=== PATIENT | male | born 1975 | race Caucasian/White ===

== ENCOUNTER 2018-03-13 07:58 | Emergency (ER) | payer MEDICAID, OTHER ==
[~2018-03-13] VITALS: Ht 190.5 cm; Wt 110.0 kg
[~2018-03-13 07:58] MED LIST: LORA1TAB PO; OLAN10TA3 PO
[2018-03-13] MEDS ORDERED: normal saline 1000ML IV soln IVB ONE ×2 (08:15→11:20)
[2018-03-13 08:39] LABS: BASOPHILS % (AUTO) 0.1 % (0-1); EOSINOPHILS % (AUTO) 0 % (0-6); HEMATOCRIT 48.6 % (42.0-52.0); HEMOGLOBIN 16.1 g/dl (14.0-17.9); LYMPHOCYTES # (AUTO) 0.7 X10'3 (1.1-4.8); MEAN CORPUSCULAR HEMOGLOBIN 29.4 PG (27.0-31.0); MEAN CORPUSCULAR HGB CONC 33.1 % (33.0-36.5); MEAN CORPUSCULAR VOLUME 88.8 FL (78-98); MEAN PLATELET VOLUME 8.7 FL (7.4-10.4); MONOCYTES # (AUTO) 0.8 X10'3 (0-0.9); MONOCYTES % (AUTO) 4.6 % (2-12); NEUTROPHILS # (AUTO) 15.9 X10'3 (1.8-7.7); NEUTROPHILS % (AUTO) 91.3 % (42-75); PLATELET COUNT 396 X10'3 (140-440); RED BLOOD COUNT 5.48 X10'6 (4.70-6.10); RED CELL DISTRIBUTION WIDTH 13.7 % (11.5-14.5); WHITE BLOOD COUNT 17.4 X10'3 (4.5-11.0)
[2018-03-13 08:52] LABS: ALANINE AMINOTRANSFERASE 115 U/L (12-78); ALBUMIN 3.5 G/DL (3.4-5.0); ALBUMIN/GLOBULIN RATIO 0.9 (1.1-1.5); ALKALINE PHOSPHATASE 85 IU/L (46-116); ANION GAP 21 (8-16); ASPARTATE AMINO TRANSFERASE 165 U/L (10-37); BILIRUBIN,TOTAL 0.9 MG/DL (0.1-1.0); BLOOD UREA NITROGEN 72 MG/DL (7-18); BUN/CREATININE RATIO 44.7 (5.4-32.0); CALCIUM 8.2 MG/DL (8.5-10.1); CHLORIDE 100 MMOL/L (99-107); CREATININE 1.61 MG/DL (0.60-1.10); ETHANOL < 0.010 GM/DL (0.0-0.010); GLUCOSE 109 MG/DL (70-104); POTASSIUM 4.5 MMOL/L (3.5-5.1); SODIUM 144 MMOL/L (135-145); TOTAL CARBON DIOXIDE 23.5 MMOL/L (24-32); TOTAL PROTEIN 7.2 G/DL (6.4-8.2); eGFR 48 ML/MIN
[2018-03-13] MEDS ORDERED: OMEP40CA37 PO (10:11)
[2018-03-13 10:37] LABS: CLARITY,URINE CLEAR (Clear); COLOR,URINE YELLOW (Yellow); GLUCOSE, URINE NEGATIVE (Neg); KETONES,URINE >=80 mg/dl (Neg); LEUKOCYTE ESTERASE ,URINE NEGATIVE (Neg); NITRITES, URINE NEGATIVE (Neg); OCCULT BLOOD,URINE MODERATE (Neg); PH,URINE 5.5 (4.8-8.0); PROTEIN,URINE NEGATIVE (Neg); UROBILINOGEN,URINE 0.2 E.U/dL (0.2-1.0)
[2018-03-13 10:45] LABS: UA COLLECTION TYPE STRAIGHT CATH
[2018-03-13 10:47] LABS: AMORPHOUS URATES 1+; BACTERIA,URINE NONE SEEN /HPF (Neg); MUCUS STRANDS NONE SEEN /LPF (Neg); RBC,URINE 0-2 /HPF (0-2); SQUAMOUS EPITHELIAL CELL,UR NONE SEEN /LPF (FEW); WBC,URINE NONE SEEN /HPF (0-4)
[2018-03-13 10:49] LABS: URINE AMPHETAMINE SCREEN NEGATIVE (Neg); URINE BARBITUATE SCREEN NEGATIVE (Neg); URINE BENZODIAZEPINES SCREEN NEGATIVE (Neg); URINE CANNABINOID SCREEN NEGATIVE (Neg); URINE COCAINE SCREEN NEGATIVE (Neg); URINE METHADONE SCREEN NEGATIVE (Neg); URINE OPIATE SCREEN NEGATIVE (Neg); URINE PHENCYCLIDINE SCREEN NEGATIVE (Neg)
[2018-03-13 13:24] LABS: ALANINE AMINOTRANSFERASE 105 U/L (12-78); ALBUMIN/GLOBULIN RATIO 0.9 (1.1-1.5); ALKALINE PHOSPHATASE 77 IU/L (46-116); ANION GAP 20 (8-16); ASPARTATE AMINO TRANSFERASE 160 U/L (10-37); BILIRUBIN,TOTAL 0.8 MG/DL (0.1-1.0); BLOOD UREA NITROGEN 61 MG/DL (7-18); BUN/CREATININE RATIO 45.5 (5.4-32.0); CALCIUM 7.6 MG/DL (8.5-10.1); CHLORIDE 104 MMOL/L (99-107); CREATININE 1.34 MG/DL (0.60-1.10); GLUCOSE 98 MG/DL (70-104); POTASSIUM 4.4 MMOL/L (3.5-5.1); SODIUM 142 MMOL/L (135-145); TOTAL PROTEIN 6.3 G/DL (6.4-8.2); eGFR 59 ML/MIN
[2018-03-13] MEDS: LORazepam 1 MG tablet PO SCH (15:14)
[2018-03-13] MEDS: olanzapine 10mg tablet PO SCH ×2 (15:14→20:56)
[2018-03-14] MEDS: LORazepam 1 MG tablet PO SCH ×3 (00:51→16:00)
[2018-03-14] MEDS: olanzapine 10mg tablet PO SCH ×3 (08:37→21:00)
[2018-03-14] MEDS: pantoprazole 40mg Tablet.DR PO SCH (08:37)
[2018-03-14] MEDS ORDERED: LORazepam 1 MG tablet PO PRN (15:50)
[2018-03-14] MEDS ORDERED: OLANZapine 2.5MG tablet PO SCH (16:00)
[2018-03-14] MEDS ORDERED: OLANZapine 2.5MG tablet PO ONE (16:00)
[2018-03-14] MEDS: OLANZapine 2.5MG tablet PO SCH (21:10)
[2018-03-15] MEDS: pantoprazole 40mg Tablet.DR PO SCH ×2 (07:30→08:05)
[2018-03-15] MEDS ORDERED: normal saline 1000ML IV soln IVB ONE (07:30)
[2018-03-15] MEDS: olanzapine 10mg tablet PO SCH (08:00)
[2018-03-15] MEDS: LORazepam 1 MG tablet PO SCH ×2 (08:00)
[2018-03-15] MEDS: OLANZapine 2.5MG tablet PO SCH (08:06)
[2018-03-15 09:09] LABS: BASOPHILS % (AUTO) 0.8 % (0-1); EOSINOPHILS # (AUTO) 0.1 X10'3 (0-0.9); EOSINOPHILS % (AUTO) 1.5 % (0-6); HEMATOCRIT 40.4 % (42.0-52.0); HEMOGLOBIN 13.4 g/dl (14.0-17.9); LYMPHOCYTES # (AUTO) 1.1 X10'3 (1.1-4.8); LYMPHOCYTES % (AUTO) 21.7 % (21-51); MEAN CORPUSCULAR HEMOGLOBIN 29.6 PG (27.0-31.0); MEAN CORPUSCULAR HGB CONC 33.2 % (33.0-36.5); MEAN PLATELET VOLUME 8.8 FL (7.4-10.4); MONOCYTES # (AUTO) 0.5 X10'3 (0-0.9); MONOCYTES % (AUTO) 9.6 % (2-12); NEUTROPHILS # (AUTO) 3.2 X10'3 (1.8-7.7); NEUTROPHILS % (AUTO) 66.4 % (42-75); PLATELET COUNT 174 X10'3 (140-440); RED BLOOD COUNT 4.54 X10'6 (4.70-6.10); RED CELL DISTRIBUTION WIDTH 13.9 % (11.5-14.5); WHITE BLOOD COUNT 4.9 X10'3 (4.5-11.0)
[2018-03-15] MEDS ORDERED: OLANZapine 2.5MG tablet PO PRN (09:10)
[2018-03-15 09:11] LABS: ALANINE AMINOTRANSFERASE 96 U/L (12-78); ALBUMIN 2.8 G/DL (3.4-5.0); ALBUMIN/GLOBULIN RATIO 0.9 (1.1-1.5); ALKALINE PHOSPHATASE 53 IU/L (46-116); ANION GAP 5 (8-16); ASPARTATE AMINO TRANSFERASE 103 U/L (10-37); BILIRUBIN,TOTAL 0.5 MG/DL (0.1-1.0); BLOOD UREA NITROGEN 19 MG/DL (7-18); BUN/CREATININE RATIO 20.2 (5.4-32.0); CALCIUM 8.4 MG/DL (8.5-10.1); CHLORIDE 109 MMOL/L (99-107); CREATININE 0.94 MG/DL (0.60-1.10); GLUCOSE 103 MG/DL (70-104); POTASSIUM 3.9 MMOL/L (3.5-5.1); SODIUM 146 MMOL/L (135-145); TOTAL CARBON DIOXIDE 32.4 MMOL/L (24-32); eGFR 88 ML/MIN
[2018-03-15 09:23] LABS: CREATINE KINASE 1103 U/L (39-308)
[2018-03-15] MEDS: LORazepam 1 MG tablet PO PRN (22:05)
[2018-03-16] MEDS: LORazepam 1 MG tablet PO PRN ×2 (04:21→09:56)
[2018-03-16 05:30] VITALS: BP 121/88
[2018-03-16] MEDS ORDERED: olanzapine 10mg tablet PO SCH (08:00)
[2018-03-16] MEDS: pantoprazole 40mg Tablet.DR PO SCH (08:15)
[2018-03-16] MEDS ORDERED: OLAN10TA3 PO (16:04)
== END 2018-03-16 16:44 ==
LOC: ER 07:59
DX: T68.XXXA Hypothermia, initial encounter (principal); F23 Brief psychotic disorder; Z88.0 Allergy status to penicillin; Z79.899 Other long term (current) drug therapy; Z59.0 Homelessness; X31.XXXA Exposure to excessive natural cold, initial encounter
CPT/HCPCS: 36415; 71045; 80053; 80305; 80320; 81001; 82140; 82550; 84443; 85025; 99285; J3490

== ENCOUNTER 2018-03-16 14:59 | Inpatient (IN) | payer MEDICAID ==
[~2018-03-16] VITALS: Ht 190.5 cm; Wt 122.9 kg
[~2018-03-16 14:59] MED LIST changes: +OMEP40CA37 PO
[2018-03-16] MEDS ORDERED: OLAN10TA3 PO (16:04)
[2018-03-16] MEDS ORDERED: acetaminophen 325mg tablet PO PRN (16:10)
[2018-03-16] MEDS ORDERED: tuberculin, purif. prot. deriv. 5 units/0.1ml ID ONE (16:10)
[2018-03-16] MEDS ORDERED: magnesium hydroxide 30ml (MOM) UD suspension PO PRN (16:10)
[2018-03-16] MEDS ORDERED: mag hydrox/Alum hydrox/simeth 30ml oral suspension PO PRN (16:10)
[2018-03-16 16:20] VITALS: BP 144/88
[2018-03-16] MEDS ORDERED: OLANZapine 2.5MG tablet PO PRN (17:35)
[2018-03-16] MEDS ORDERED: olanzapine 10mg tablet PO PRN (17:35)
[2018-03-16] MEDS ORDERED: OLANZapine 2.5MG tablet PO ONE (19:15)
[2018-03-16] MEDS ORDERED: olanzapine 10mg tablet PO ONE (19:20)
[2018-03-16] MEDS ORDERED: LORazepam 1 MG tablet PO ONE (19:25)
[2018-03-16 19:45] LABS: CHOL/HDL RATIO 4.2 (0.00-4.99); CHOLESTEROL 121 MG/DL (0-200); HDL CHOLESTEROL 29 MG/DL (35-60); LDL CHOLESTEROL 75 MG/DL (50-100); TRIGLYCERIDES 127 MG/DL (20-135)
[2018-03-16 19:50] VITALS: BP 145/82
[2018-03-16 20:34] VITALS: BP 145/82
[2018-03-17] MEDS: LORazepam 1 MG tablet PO PRN ×2 (00:50→21:34)
[2018-03-17] MEDS: olanzapine 10mg tablet PO PRN ×2 (01:01→11:53)
[2018-03-17 08:00] VITALS: BP 128/85
[2018-03-17] MEDS: pantoprazole 40mg Tablet.DR PO SCH (08:13)
[2018-03-17] MEDS: olanzapine 10mg tablet PO SCH ×2 (08:14→21:33)
[2018-03-17] MEDS: acetaminophen 325mg tablet PO PRN (12:43)
[2018-03-17 15:57] LABS: BASOPHILS % (AUTO) 0.2 % (0-1); EOSINOPHILS # (AUTO) 0.2 X10'3 (0-0.9); EOSINOPHILS % (AUTO) 3.5 % (0-6); HEMATOCRIT 43.4 % (42.0-52.0); HEMOGLOBIN 14.4 g/dl (14.0-17.9); LYMPHOCYTES # (AUTO) 1.1 X10'3 (1.1-4.8); LYMPHOCYTES % (AUTO) 16.6 % (21-51); MEAN CORPUSCULAR HEMOGLOBIN 29.4 PG (27.0-31.0); MEAN CORPUSCULAR HGB CONC 33.3 % (33.0-36.5); MEAN CORPUSCULAR VOLUME 88.4 FL (78-98); MEAN PLATELET VOLUME 8.5 FL (7.4-10.4); MONOCYTES # (AUTO) 0.4 X10'3 (0-0.9); MONOCYTES % (AUTO) 6.4 % (2-12); NEUTROPHILS # (AUTO) 4.9 X10'3 (1.8-7.7); NEUTROPHILS % (AUTO) 73.3 % (42-75); PLATELET COUNT 255 X10'3 (140-440); RED BLOOD COUNT 4.91 X10'6 (4.70-6.10); RED CELL DISTRIBUTION WIDTH 13.8 % (11.5-14.5); WHITE BLOOD COUNT 6.7 X10'3 (4.5-11.0)
[2018-03-17 16:03] LABS: LACTIC SEPSIS 1.6 MMOL/L (0.4-2.0)
[2018-03-17 16:06] LABS: ALANINE AMINOTRANSFERASE 93 U/L (12-78); ALBUMIN 3.1 G/DL (3.4-5.0); ALBUMIN/GLOBULIN RATIO 0.8 (1.1-1.5); ALKALINE PHOSPHATASE 73 IU/L (46-116); ANION GAP 7 (8-16); ASPARTATE AMINO TRANSFERASE 57 U/L (10-37); BILIRUBIN,TOTAL 0.3 MG/DL (0.1-1.0); BLOOD UREA NITROGEN 16 MG/DL (7-18); BUN/CREATININE RATIO 15.8 (5.4-32.0); CHLORIDE 106 MMOL/L (99-107); CREATINE KINASE 246 U/L (39-308); CREATININE 1.01 MG/DL (0.60-1.10); GLUCOSE 145 MG/DL (70-104); POTASSIUM 4.2 MMOL/L (3.5-5.1); SODIUM 141 MMOL/L (135-145); eGFR 81 ML/MIN
[2018-03-17 16:15] LABS: HIV ANTIBODY 1&2 RAPID NON-REACTIVE (Neg)
[2018-03-17 19:00] VITALS: BP 109/76
[2018-03-17] MEDS: propranolol 10mg tablet PO SCH (21:34)
[2018-03-18 08:00] VITALS: BP 151/71
[2018-03-18] MEDS: pantoprazole 40mg Tablet.DR PO SCH (08:18)
[2018-03-18] MEDS: propranolol 10mg tablet PO SCH ×2 (08:18→20:24)
[2018-03-18] MEDS: olanzapine 10mg tablet PO SCH ×2 (08:18→21:00)
[2018-03-18] MEDS: LORazepam 1 MG tablet PO PRN (19:38)
[2018-03-18] MEDS: olanzapine 10mg tablet PO PRN (19:38)
[2018-03-18 20:00] VITALS: BP 116/63
[2018-03-18] MEDS ORDERED: OLANZapine 2.5MG tablet PO ONE (20:05)
[2018-03-18] MEDS ORDERED: olanzapine 10mg tablet PO ONE (20:10)
[2018-03-18] MEDS ORDERED: diphenhydrAMINE 25mg capsule PO ONE (23:20)
[2018-03-18] MEDS ORDERED: haloperidol 5mg tablet PO ONE (23:20)
[2018-03-18] MEDS ORDERED: LORazepam 1 MG tablet PO ONE (23:20)
[2018-03-19 07:12] LABS: HBSAG SCREEN Negative (Negative); HEP A AB, IGM Negative (Negative); HEP B CORE AB, IGM Negative (Negative); HEPATITIS C ANTIBODY 0.2 s/co ratio (0.0-0.9)
[2018-03-19 08:00] VITALS: BP 143/90
[2018-03-19] MEDS: propranolol 10mg tablet PO SCH ×3 (08:27→19:59)
[2018-03-19] MEDS: olanzapine 10mg tablet PO SCH ×2 (08:27→20:00)
[2018-03-19] MEDS: pantoprazole 40mg Tablet.DR PO SCH (08:27)
[2018-03-19] MEDS: olanzapine 10mg tablet PO PRN (13:46)
[2018-03-19 17:12] VITALS: BP 102/60
[2018-03-19 19:00] VITALS: BP 126/65
[2018-03-19] MEDS: diphenhydrAMINE 25mg capsule PO PRN ×2 (22:16→23:09)
[2018-03-19] MEDS: LORazepam 1 MG tablet PO PRN ×2 (22:16→23:08)
[2018-03-19] MEDS: haloperidol 5mg tablet PO PRN ×2 (22:16→23:09)
[2018-03-20 08:00] VITALS: BP 131/80
[2018-03-20] MEDS: propranolol 10mg tablet PO SCH ×3 (08:02→20:16)
[2018-03-20] MEDS: olanzapine 10mg tablet PO SCH ×2 (08:03→20:16)
[2018-03-20] MEDS: pantoprazole 40mg Tablet.DR PO SCH (08:03)
[2018-03-20 20:00] VITALS: BP 123/72
[2018-03-20] MEDS: haloperidol 5mg tablet PO PRN ×2 (22:06→22:50)
[2018-03-20] MEDS: diphenhydrAMINE 25mg capsule PO PRN ×2 (22:06→22:51)
[2018-03-20] MEDS: LORazepam 1 MG tablet PO PRN ×2 (22:06→22:50)
[2018-03-21] MEDS: olanzapine 10mg tablet PO SCH ×2 (07:45→21:01)
[2018-03-21] MEDS: propranolol 10mg tablet PO SCH ×3 (07:46→21:01)
[2018-03-21] MEDS: pantoprazole 40mg Tablet.DR PO SCH (07:46)
[2018-03-21 08:00] VITALS: BP 126/72
[2018-03-21] MEDS: haloperidol 5mg tablet PO PRN ×2 (10:04→21:02)
[2018-03-21] MEDS: LORazepam 1 MG tablet PO PRN ×2 (10:05→21:02)
[2018-03-21 20:00] VITALS: BP 117/61
[2018-03-21] MEDS: diphenhydrAMINE 25mg capsule PO PRN (21:02)
[2018-03-22 08:00] VITALS: BP 129/77
[2018-03-22] MEDS: olanzapine 10mg tablet PO SCH ×2 (08:06→20:25)
[2018-03-22] MEDS: propranolol 10mg tablet PO SCH ×3 (08:06→20:24)
[2018-03-22] MEDS: pantoprazole 40mg Tablet.DR PO SCH (08:06)
[2018-03-22 20:00] VITALS: BP 115/64
[2018-03-22] MEDS: LORazepam 1 MG tablet PO PRN (20:23)
[2018-03-22] MEDS: temazepam 15mg capsule PO PRN (20:24)
[2018-03-23 08:00] VITALS: BP 129/65
[2018-03-23] MEDS: propranolol 10mg tablet PO SCH ×3 (08:25→20:50)
[2018-03-23] MEDS: olanzapine 10mg tablet PO SCH ×2 (08:25→20:50)
[2018-03-23] MEDS: pantoprazole 40mg Tablet.DR PO SCH (08:25)
[2018-03-23] MEDS: haloperidol 5mg tablet PO PRN (18:53)
[2018-03-23] MEDS: LORazepam 1 MG tablet PO PRN (18:53)
[2018-03-23 20:00] VITALS: BP 118/80
[2018-03-23] MEDS: diphenhydrAMINE 25mg capsule PO PRN (20:49)
[2018-03-23] MEDS: temazepam 15mg capsule PO PRN (20:51)
[2018-03-23 21:23] VITALS: BP 116/82
[2018-03-24 07:30] VITALS: BP 106/82
[2018-03-24] MEDS: olanzapine 10mg tablet PO SCH ×2 (08:20→20:55)
[2018-03-24] MEDS: pantoprazole 40mg Tablet.DR PO SCH (08:20)
[2018-03-24] MEDS: propranolol 10mg tablet PO SCH ×3 (08:20→20:55)
[2018-03-24 12:55] VITALS: BP 111/71
[2018-03-24 20:00] VITALS: BP 120/60
[2018-03-24] MEDS: haloperidol 5mg tablet PO PRN (20:56)
[2018-03-24] MEDS: LORazepam 1 MG tablet PO PRN (20:57)
[2018-03-24] MEDS: temazepam 15mg capsule PO PRN (20:57)
[2018-03-25] MEDS: propranolol 10mg tablet PO SCH ×3 (07:35→20:12)
[2018-03-25] MEDS: olanzapine 10mg tablet PO SCH ×2 (07:36→20:12)
[2018-03-25] MEDS: pantoprazole 40mg Tablet.DR PO SCH (07:36)
[2018-03-25 07:41] VITALS: BP 122/88
[2018-03-25] MEDS: LORazepam 1 MG tablet PO PRN (10:37)
[2018-03-25] MEDS: haloperidol 5mg tablet PO PRN (10:48)
[2018-03-25] MEDS: diphenhydrAMINE 25mg capsule PO PRN (12:18)
[2018-03-25] MEDS: temazepam 15mg capsule PO PRN (20:12)
[2018-03-25 20:52] VITALS: BP 116/65
[2018-03-26 07:23] VITALS: BP 126/82
[2018-03-26] MEDS: olanzapine 10mg tablet PO SCH ×2 (08:18→20:54)
[2018-03-26] MEDS: pantoprazole 40mg Tablet.DR PO SCH (08:18)
[2018-03-26] MEDS: LORazepam 1 MG tablet PO PRN ×2 (08:19→20:53)
[2018-03-26] MEDS: propranolol 10mg tablet PO SCH ×3 (08:19→20:53)
[2018-03-26] MEDS: diphenhydrAMINE 25mg capsule PO PRN ×2 (12:29→20:53)
[2018-03-26] MEDS: haloperidol 5mg tablet PO PRN ×2 (12:29→20:53)
[2018-03-26 20:00] VITALS: BP 113/68
[2018-03-27] MEDS: pantoprazole 40mg Tablet.DR PO SCH (07:56)
[2018-03-27] MEDS: propranolol 10mg tablet PO SCH ×3 (07:56→20:19)
[2018-03-27] MEDS: olanzapine 10mg tablet PO SCH ×2 (07:56→20:19)
[2018-03-27 08:00] VITALS: BP 111/62
[2018-03-27 19:00] VITALS: BP 110/68
[2018-03-27] MEDS: haloperidol 5mg tablet PO PRN (20:18)
[2018-03-27] MEDS: LORazepam 1 MG tablet PO PRN (20:19)
[2018-03-27] MEDS: diphenhydrAMINE 25mg capsule PO PRN (20:19)
[2018-03-28 08:00] VITALS: BP 115/67
[2018-03-28] MEDS: pantoprazole 40mg Tablet.DR PO SCH (08:12)
[2018-03-28] MEDS: propranolol 10mg tablet PO SCH ×3 (08:12→20:05)
[2018-03-28] MEDS: olanzapine 10mg tablet PO SCH ×2 (08:12→20:04)
[2018-03-28 13:08] VITALS: BP 103/59
[2018-03-28 20:00] VITALS: BP 108/54
[2018-03-28] MEDS: LORazepam 1 MG tablet PO PRN (20:04)
[2018-03-28] MEDS: diphenhydrAMINE 25mg capsule PO PRN (20:04)
[2018-03-28] MEDS: haloperidol 5mg tablet PO PRN (20:05)
[2018-03-29 08:00] VITALS: BP 148/95
[2018-03-29] MEDS: olanzapine 10mg tablet PO SCH ×2 (08:22→20:14)
[2018-03-29] MEDS: propranolol 10mg tablet PO SCH ×3 (08:22→20:13)
[2018-03-29] MEDS: pantoprazole 40mg Tablet.DR PO SCH (08:22)
[2018-03-29 12:39] VITALS: BP 113/64
[2018-03-29 19:45] VITALS: BP 115/61
[2018-03-29] MEDS: temazepam 15mg capsule PO PRN (20:19)
[2018-03-30 08:00] VITALS: BP 115/87
[2018-03-30] MEDS: propranolol 10mg tablet PO SCH ×3 (08:08→20:11)
[2018-03-30] MEDS: olanzapine 10mg tablet PO SCH ×2 (08:08→20:12)
[2018-03-30] MEDS: pantoprazole 40mg Tablet.DR PO SCH (08:08)
[2018-03-30] MEDS ORDERED: tuberculin, purif. prot. deriv. 5 units/0.1ml ID ONE (12:00)
[2018-03-30 12:20] VITALS: BP 110/68
[2018-03-30 20:00] VITALS: BP 131/74
[2018-03-30] MEDS: temazepam 15mg capsule PO PRN (20:11)
[2018-03-31] MEDS: acetaminophen 325mg tablet PO PRN (03:15)
[2018-03-31] MEDS: pantoprazole 40mg Tablet.DR PO SCH (07:32)
[2018-03-31] MEDS: olanzapine 10mg tablet PO SCH ×2 (07:32→21:07)
[2018-03-31] MEDS: propranolol 10mg tablet PO SCH ×4 (07:32→21:07)
[2018-03-31 08:00] VITALS: BP 108/53
[2018-03-31 13:30] VITALS: BP 119/68
[2018-03-31 20:18] VITALS: BP 92/50
[2018-03-31] MEDS: temazepam 15mg capsule PO PRN (21:07)
[2018-04-01 08:00] VITALS: BP 108/67
[2018-04-01] MEDS: propranolol 10mg tablet PO SCH ×4 (08:18→20:02)
[2018-04-01] MEDS: olanzapine 10mg tablet PO SCH ×2 (08:18→20:02)
[2018-04-01] MEDS: pantoprazole 40mg Tablet.DR PO SCH (08:18)
[2018-04-01] MEDS ORDERED: TEMA30CA PO (15:15)
[2018-04-01] MEDS ORDERED: OLAN20TA16 PO (15:15)
[2018-04-01] MEDS ORDERED: OLAN10TA3 PO (15:15)
[2018-04-01] MEDS ORDERED: OMEP20TA5 PO (15:15)
[2018-04-01] MEDS ORDERED: ATI1T PO (15:15)
[2018-04-01] MEDS ORDERED: PROP10TA10 PO (15:15)
[2018-04-01] MEDS ORDERED: DIPH50CA3 PO (15:15)
[2018-04-01] MEDS ORDERED: HALO5TAB PO (15:15)
[2018-04-01 15:42] VITALS: BP 106/64
[2018-04-01] MEDS: LORazepam 1 MG tablet PO PRN (20:02)
[2018-04-01] MEDS: diphenhydrAMINE 25mg capsule PO PRN (20:02)
[2018-04-01] MEDS: haloperidol 5mg tablet PO PRN (20:02)
[2018-04-01 20:22] VITALS: BP 104/62
[2018-04-02 08:00] VITALS: BP 105/62
[2018-04-02] MEDS: olanzapine 10mg tablet PO SCH (08:49)
[2018-04-02] MEDS: pantoprazole 40mg Tablet.DR PO SCH (08:49)
[2018-04-02] MEDS: propranolol 10mg tablet PO SCH (08:50)
[2018-04-02] MEDS ORDERED: PROP10TA10 PO (13:52)
== END 2018-04-02 10:15 | disposition short-term general hospital (02) | DRG 750 ==
LOC: ADULT MH 15:51
PROVIDERS: ADMIT Psychiatry & Neurology Psychiatry; ATTEND Psychiatry & Neurology Psychiatry
DX: F20.0 Paranoid schizophrenia (principal); G93.40 Encephalopathy, unspecified; E87.1 Hypo-osmolality and hyponatremia; Z59.0 Homelessness; E03.9 Hypothyroidism, unspecified; K75.9 Inflammatory liver disease, unspecified; E66.9 Obesity, unspecified; R42 Dizziness and giddiness; R79.89 Other specified abnormal findings of blood chemistry; Z88.0 Allergy status to penicillin; Z68.33 Body mass index [BMI] 33.0-33.9, adult
CPT/HCPCS: 36415; 71045; 80053; 80061; 80074; 82140; 82550; 83036; 83605; 84145; 84439; 84443; 85025; 86703; 87070; J3490; Q0163

== ENCOUNTER 2018-08-30 13:27 | Emergency (ER) | payer MEDICAID ==
[~2018-08-30] VITALS: Ht 373.4 cm; Wt 150.0 kg
[~2018-08-30 13:27] MED LIST changes: +ATI1T PO; +DIPH50CA3 PO; +HALO5TAB PO; -LORA1TAB PO; +OLAN20TA16 PO; +OMEP20TA5 PO; -OMEP40CA37 PO; +PROP10TA10 PO; +TEMA30CA PO
--- NOTE | 2018-08-30 13:55 | NUR ---
Pt walked over from main ER to bed 22 accompanied by staff and friend from [facility].
--- NOTE | 2018-08-30 14:15 | NUR ---
FRIEND: Mary Ann Roach [phone], she took pt's clothes home to wash.
[2018-08-30 14:35] LABS: CLARITY,URINE CLEAR (Clear); COLOR,URINE YELLOW (Yellow); GLUCOSE, URINE NEGATIVE (Neg); KETONES,URINE NEGATIVE (Neg); LEUKOCYTE ESTERASE ,URINE NEGATIVE (Neg); NITRITES, URINE NEGATIVE (Neg); OCCULT BLOOD,URINE NEGATIVE (Neg); PROTEIN,URINE NEGATIVE (Neg); UROBILINOGEN,URINE 0.2 E.U/dL (0.2-1.0)
[2018-08-30 14:39] LABS: URINE AMPHETAMINE SCREEN NEGATIVE (Neg); URINE BARBITUATE SCREEN NEGATIVE (Neg); URINE BENZODIAZEPINES SCREEN NEGATIVE (Neg); URINE CANNABINOID SCREEN NEGATIVE (Neg); URINE COCAINE SCREEN NEGATIVE (Neg); URINE METHADONE SCREEN NEGATIVE (Neg); URINE OPIATE SCREEN NEGATIVE (Neg); URINE PHENCYCLIDINE SCREEN NEGATIVE (Neg)
[2018-08-30 14:46] LABS: UA COLLECTION TYPE CLN CATCH MIDSTREAM
--- NOTE | 2018-08-30 15:00 | NUR ---
Pt is religiously preoccupied and responding to internal stimuli, admits to AH, states he hears God and the Adversary speaking to him. Pt states that he tries not to listen to the Adversary but he has made that mistake and done so in the past. Pt states that he sometimes sees the light of God illuminating the darkness. Pt denies depression, SI/HI. Pt prefers to keep his eyes closed the majority of the time, he often speaks quietly to himself/the voices repeating things like, "thank you Raul, thank you Raul, thank you Raul" over and over again. Pt is cooperative and polite though obsessive at times with requests for the phone to call his uncle or requests for staff to sit with him or pray for him. Pt has a Bible on his bedside table. Pt has been off his meds for months. He just returned from a disciple program in [place] called [employer] which he was kicked out of. Pt is homeless, a friend from [employer] allows him to stay in a small cottage on her property from time to time but she is unable to continue allowing him to do so due to psychotic behavior and inablility to follow/respect her rules.
[2018-08-30 15:04] LABS: BASOPHILS % (AUTO) 0.5 % (0-1); EOSINOPHILS # (AUTO) 0.2 X10'3 (0-0.9); HEMATOCRIT 41.9 % (42.0-52.0); HEMOGLOBIN 14.4 g/dl (14.0-17.9); LYMPHOCYTES # (AUTO) 1.6 X10'3 (1.1-4.8); LYMPHOCYTES % (AUTO) 25.2 % (21-51); MEAN CORPUSCULAR HEMOGLOBIN 29.1 PG (27.0-31.0); MEAN CORPUSCULAR HGB CONC 34.4 g/dL (33.0-36.5); MEAN CORPUSCULAR VOLUME 84.7 FL (78-98); MEAN PLATELET VOLUME 8.4 FL (7.4-10.4); MONOCYTES # (AUTO) 0.5 X10'3 (0-0.9); MONOCYTES % (AUTO) 7.5 % (2-12); NEUTROPHILS # (AUTO) 4.2 X10'3 (1.8-7.7); NEUTROPHILS % (AUTO) 63.8 % (42-75); PLATELET COUNT 234 X10'3 (140-440); RED BLOOD COUNT 4.95 X10'6 (4.70-6.10); RED CELL DISTRIBUTION WIDTH 13.6 % (11.5-14.5); WHITE BLOOD COUNT 6.5 X10'3 (4.5-11.0)
[2018-08-30] MEDS ORDERED: OMEP20TA23 PO (15:10)
[2018-08-30] MEDS ORDERED: OLAN20TA3 PO (15:10)
[2018-08-30] MEDS ORDERED: DIPH25CA83 PO (15:10)
[2018-08-30] MEDS ORDERED: TEMA30CA5 PO (15:10)
[2018-08-30] MEDS ORDERED: OLAN10TA3 PO (15:10)
[2018-08-30] MEDS ORDERED: HALO5TAB PO (15:10)
[2018-08-30] MEDS ORDERED: LORA-269 PO (15:10)
[2018-08-30 15:17] LABS: ALANINE AMINOTRANSFERASE 51 U/L (12-78); ALBUMIN 3.7 G/DL (3.4-5.0); ALBUMIN/GLOBULIN RATIO 1.2 (1.1-1.5); ALKALINE PHOSPHATASE 97 IU/L (46-116); ANION GAP 6 (8-16); ASPARTATE AMINO TRANSFERASE 23 U/L (10-37); BILIRUBIN,TOTAL 0.3 MG/DL (0.1-1.0); BLOOD UREA NITROGEN 11 MG/DL (7-18); BUN/CREATININE RATIO 11.6 (5.4-32.0); CALCIUM 9.1 MG/DL (8.5-10.1); CHLORIDE 108 MMOL/L (99-107); CREATININE 0.95 MG/DL (0.60-1.10); ETHANOL < 0.010 GM/DL (0.0-0.010); GLUCOSE 151 MG/DL (70-104); POTASSIUM 3.9 MMOL/L (3.5-5.1); SODIUM 142 MMOL/L (135-145); TOTAL CARBON DIOXIDE 27.9 MMOL/L (24-32); TOTAL PROTEIN 6.9 G/DL (6.4-8.2); eGFR 87 ML/MIN
[2018-08-30] MEDS ORDERED: diphenhydrAMINE 25mg capsule PO PRN (15:50)
[2018-08-30] MEDS ORDERED: haloperidol 5mg tablet PO PRN (15:50)
[2018-08-30] MEDS ORDERED: temazepam 15mg capsule PO PRN (16:10)
--- NOTE | 2018-08-30 17:01 | NUR ---
PACKET HAS BEEN FAXED TO [facility]
[2018-08-30] MEDS: LORazepam 1 MG tablet PO PRN (17:51)
--- NOTE | 2018-08-30 17:51 | NUR ---
Pt sitting on the side of the bed with head in his hands rocking back and forth, responding to the voices. Medicated with prn Ativan 1 mg PO.
--- NOTE | 2018-08-30 19:36 | NUR ---
One to one with the patient to assess severity of thought disorder and self harm risk. The patient has been resting in his bed with his eyes closed but talking constantly to himself about Raul and [employer] themes. He was very cooperative with the evening assessment. He is requesting zyprexa so he can sleep. He stated that "I've really struggled with sleep over and over" He reports auditory hallucinations of "mainly of my God telling me things then I'll denounce it in the name of Raul" He denies that he has thoughts to harm himself or others. At this point the patient presents as gravely disabled.
[2018-08-30] MEDS: olanzapine 10mg tablet PO SCH (20:05)
--- NOTE | 2018-08-30 22:35 | NUR ---
The patient appears to be asleep at this time.
--- NOTE | 2018-08-31 00:58 | NUR ---
The patient appears to be asleep
--- NOTE | 2018-08-31 03:07 | NUR ---
The patient appears to be asleep
--- NOTE | 2018-08-31 05:24 | NUR ---
The patient appears to be asleep at this time
--- NOTE | 2018-08-31 06:54 | NUR ---
Assumed care of patient. Patient sleeping in bed, snoring. No distress noted. Patient in 30degree angle to attempt to reduce snoring.
[2018-08-31] MEDS ORDERED: pantoprazole 40mg Tablet.DR PO SCH (07:30)
[2018-08-31] MEDS ORDERED: olanzapine 10mg tablet PO SCH (08:00)
--- NOTE | 2018-08-31 08:00 | NUR ---
Patient sat up in bed and ate breakfast. Patient amvbulated to restroom with steady gait. Patient now resting in bed with eyes closed. No needs at this time.
--- NOTE | 2018-08-31 09:26 | NUR ---
Patient sleeping in bed. Respirations even, no distress noted, occassional snoring.
--- NOTE | 2018-08-31 10:38 | NUR ---
Mental Health at bedside, talking with patient.
--- NOTE | 2018-08-31 11:35 | NUR ---
Patient given snack per request.
--- NOTE | 2018-08-31 12:54 | NUR ---
Patient continues to sleep in bed, respirations even, no distress noted. Patient snorring on occassion. Self reposistions.
--- NOTE | 2018-08-31 13:08 | NUR ---
Patient sitting up in bed eating lunch. Patient quietly talking to self. Patient cooperative.
--- NOTE | 2018-08-31 13:29 | NUR ---
Patient ambulated to restroom after eating, loud coughing noises coming from restroom. Patient asked if he is okay, patient states, "I'm fine". Patient ambulated to bed, asked patient if he is nauseated or needs nausea medication. Patient declines and states he is fine.
--- NOTE | 2018-08-31 13:35 | NUR ---
Patient ambulated to nurses station, fidgety and pumping legs. Patient requesting "psych medication." Patient declined ativan and requested haldo. Patient states he is feeling anxious. Patient lying in bed with eyes closed, quietly talking to self out loud.
--- NOTE | 2018-08-31 13:53 | NUR ---
Patient sitting up in bed, reading his book.
--- NOTE | 2018-08-31 14:40 | NUR ---
Patient walking to restroom often. Asked patient if he needs anything, patient declines. Patient whispering to self. Refilled patient's ice water. Patient's lights dimmed. Patient now resting in bed with eyes closed.
--- NOTE | 2018-08-31 15:08 | NUR ---
Patient's friend Sister Mary Ann at bedside. Patient relieved to see her. Patient talking with Mary Ann calmly.
--- NOTE | 2018-08-31 15:18 | NUR ---
Patient sitting up in bed eating second lunch tray per patient request. Patient given warm blankets.
[2018-08-31] MEDS: LORazepam 1 MG tablet PO PRN (15:29)
--- NOTE | 2018-08-31 15:30 | NUR ---
Patient sitting on bedside, reading book, rocking back and forth. Patient request anxiety medication. Patient cooperative. Patient given 1mg ativan PO. Patient now lying down in bed with eyes closed.
--- NOTE | 2018-08-31 15:56 | NUR ---
Patient pacing to restroom and back to bed. Patient whispering to self. Patient reports feeling anxious. Patient medicated. Patient cooperative.
--- NOTE | 2018-08-31 17:02 | NUR ---
Patient now sleeping in bed, respirations even. No distress noted.
--- NOTE | 2018-08-31 18:03 | NUR ---
Yola Mancia called and updated on patient's condition.
--- NOTE | 2018-08-31 18:30 | NUR ---
The patient is resting on his bed and appears to be asleep but awakened easily for the evening meal
[2018-08-31] MEDS: olanzapine 10mg tablet PO SCH (20:53)
--- NOTE | 2018-08-31 21:00 | NUR ---
The patient has been accepted to [facility] [place]. [facility] is arranging transport.
[2018-08-31 21:56] VITALS: BP 111/58
== END 2018-08-31 22:00 ==
LOC: ER 13:28
DX: F29 Unspecified psychosis not due to a substance or known physiological condition (principal); F79 Unspecified intellectual disabilities; Z59.0 Homelessness; Z88.0 Allergy status to penicillin; Z79.899 Other long term (current) drug therapy
CPT/HCPCS: 36415; 80053; 80305; 80320; 81003; 84443; 85025; 99285; Q0163; J3490

== ENCOUNTER 2019-03-11 03:05 | Emergency (ER) | payer MEDICAID ==
[~2019-03-11] VITALS: Ht 190.5 cm; Wt 136.3 kg
[~2019-03-11 03:05] MED LIST changes: -ATI1T PO; +DIPH25CA83 PO; -DIPH50CA3 PO; +LORA-269 PO; -OLAN20TA16 PO; +OLAN20TA3 PO; +OMEP20TA23 PO; -OMEP20TA5 PO; -PROP10TA10 PO; -TEMA30CA PO; +TEMA30CA5 PO
[2019-03-11 04:35] VITALS: BP 117/89
== END 2019-03-11 04:38 | disposition home or self-care (01) ==
LOC: ER 03:06
DX: R07.0 Pain in throat (principal); F29 Unspecified psychosis not due to a substance or known physiological condition; Z59.0 Homelessness; Z88.0 Allergy status to penicillin; Z79.899 Other long term (current) drug therapy
CPT/HCPCS: 99281

== ENCOUNTER 2019-05-07 14:38 | Emergency (ER) | payer MEDICAID ==
[~2019-05-07] VITALS: Ht 188 cm; Wt 146.0 kg
--- NOTE | 2019-05-07 15:41 | NUR ---
pt states friend/landlord/sister in [place] is Mary Ann Chungolman [phone] for information. Pt states allowed to share information with her.
[2019-05-07 16:18] LABS: CLARITY,URINE CLEAR (Clear); COLOR,URINE YELLOW (Yellow); GLUCOSE, URINE NEGATIVE (Neg); KETONES,URINE TRACE mg/dl (Neg); LEUKOCYTE ESTERASE ,URINE NEGATIVE (Neg); NITRITES, URINE NEGATIVE (Neg); OCCULT BLOOD,URINE NEGATIVE (Neg); PH,URINE 7.5 (4.8-8.0); PROTEIN,URINE NEGATIVE (Neg); UROBILINOGEN,URINE 0.2 E.U/dL (0.2-1.0)
[2019-05-07 16:22] LABS: UA COLLECTION TYPE CLN CATCH MIDSTREAM
[2019-05-07 16:26] LABS: BASOPHILS # (AUTO) 0.1 X10'3 (0-0.2); BASOPHILS % (AUTO) 0.8 % (0-1); EOSINOPHILS # (AUTO) 0.1 X10'3 (0-0.9); EOSINOPHILS % (AUTO) 1.1 % (0-6); HEMATOCRIT 40.9 % (42.0-52.0); HEMOGLOBIN 14.4 g/dl (14.0-17.9); LYMPHOCYTES # (AUTO) 1.5 X10'3 (1.1-4.8); LYMPHOCYTES % (AUTO) 17.4 % (21-51); MEAN CORPUSCULAR HEMOGLOBIN 30.5 PG (27.0-31.0); MEAN CORPUSCULAR HGB CONC 35.3 g/dL (33.0-36.5); MEAN CORPUSCULAR VOLUME 86.4 FL (78-98); MEAN PLATELET VOLUME 7.8 FL (7.4-10.4); MONOCYTES # (AUTO) 0.6 X10'3 (0-0.9); MONOCYTES % (AUTO) 6.7 % (2-12); NEUTROPHILS # (AUTO) 6.3 X10'3 (1.8-7.7); PLATELET COUNT 250 X10'3 (140-440); RED BLOOD COUNT 4.73 X10'6 (4.70-6.10); WHITE BLOOD COUNT 8.5 X10'3 (4.5-11.0)
[2019-05-07 16:34] LABS: URINE AMPHETAMINE SCREEN NEGATIVE (Neg); URINE BARBITUATE SCREEN NEGATIVE (Neg); URINE BENZODIAZEPINES SCREEN NEGATIVE (Neg); URINE CANNABINOID SCREEN NEGATIVE (Neg); URINE COCAINE SCREEN NEGATIVE (Neg); URINE METHADONE SCREEN NEGATIVE (Neg); URINE OPIATE SCREEN NEGATIVE (Neg); URINE PHENCYCLIDINE SCREEN NEGATIVE (Neg)
[2019-05-07 16:53] LABS: ALANINE AMINOTRANSFERASE 80 U/L (12-78); ALBUMIN 4.1 G/DL (3.4-5.0); ALBUMIN/GLOBULIN RATIO 1.2 (1.1-1.5); ALKALINE PHOSPHATASE 93 IU/L (46-116); ANION GAP 9 (8-16); ASPARTATE AMINO TRANSFERASE 40 U/L (10-37); BILIRUBIN,TOTAL 0.4 MG/DL (0.1-1.0); BLOOD UREA NITROGEN 10 MG/DL (7-18); BUN/CREATININE RATIO 10.1 (5.4-32.0); CALCIUM 9.1 MG/DL (8.5-10.1); CHLORIDE 105 MMOL/L (99-107); CREATININE 0.99 MG/DL (0.60-1.10); GLUCOSE 107 MG/DL (70-104); POTASSIUM 4.3 MMOL/L (3.5-5.1); SODIUM 141 MMOL/L (135-145); TOTAL CARBON DIOXIDE 27.1 MMOL/L (24-32); TOTAL PROTEIN 7.6 G/DL (6.4-8.2); eGFR 83 ML/MIN
[2019-05-07 16:56] LABS: ETHANOL < 0.010 GM/DL (0.0-0.010)
--- NOTE | 2019-05-07 17:15 | NUR ---
PACKET FAXED TO [facility]
[2019-05-07] MEDS ORDERED: UNABLE TO OBTAIN (18:32)
--- NOTE | 2019-05-07 18:33 | NUR ---
Patient does not know what medications he takes, pt. states "I had a list, but I threw it away".
[2019-05-07] MEDS ORDERED: temazepam 15mg capsule PO ONE (18:55)
--- NOTE | 2019-05-07 19:00 | NUR ---
Accidently charted on pt. at 1900, wrong patient. Charted Elopement, Fall Risk, General Group, and Homeless interventions, interventions undone.
--- NOTE | 2019-05-07 19:06 | NUR ---
Pt medicated as ordered with Temazepam 15mg PO. Pt is making statements randomly and praying frequently. Pt made a phone call to someone and said "God loves you" then hangs up.
--- NOTE | 2019-05-07 19:19 | NUR ---
Pt's gallorjudd Reese phoned to inform the staff that when Rito got his usual monthly medication injection that it was not as effective for managing his symptoms and "he has not been as balanced as usual."
--- NOTE | 2019-05-07 19:55 | NUR ---
Pt. up out of bed pacing in view of staff, pt. appears calm and follows staff directions.
--- NOTE | 2019-05-07 21:58 | NUR ---
Pt. in bed, appears restless. Pt. cooperative
--- NOTE | 2019-05-07 22:04 | NUR ---
Josseline martinez in ED - 05/07/19 at 2250 by NICK Patient has torn ID band and elopment band off and thorwn across room. Pt. arguing with manager security.
--- NOTE | 2019-05-07 22:06 | NUR ---
Josseline martinez in [facility] - 05/07/19 at 2251 by NICK Pt. back in bed. 1:1 sitter and security near pt.
--- NOTE | 2019-05-07 22:52 | NUR ---
notes at 2204 and 2206 entered in error on wrong chart.
--- NOTE | 2019-05-07 22:53 | NUR ---
Patient resting on right side, talking to self, respirations WNL, no S/S of distress
--- NOTE | 2019-05-07 22:58 | NUR ---
Pt. standing at bed side talking to self
--- NOTE | 2019-05-08 00:58 | NUR ---
discussed patient's continuous pacing and inablity to sleep delia lozano, orders received
[2019-05-08] MEDS ORDERED: temazepam 15mg capsule PO ONE (01:00)
[2019-05-08] MEDS ORDERED: olanzapine 10mg tablet PO ONE (01:00)
--- NOTE | 2019-05-08 01:35 | NUR ---
Pt lying awake in bed responding to internal stimuli. pt states "its Tony" and singing to self. Pt in no appartent distress, calm and cooperative. will continue to monitor.
--- NOTE | 2019-05-08 03:30 | NUR ---
PT SLEEPING PEACEFULLY ON RIGHT SIDE. NO S/S DISTRESS. RESPIRATIONS EVEN AND UNLABORED. WILL CONTINUE TO MONITOR.
--- NOTE | 2019-05-08 07:15 | NUR ---
PT STOOD UP AND WALKED OUTSIDE THE CURTAIN AND THEN WALKED BACK TO BED AND LAID BACK DOWN. PT SLEEPING AGAIN NOW.
--- NOTE | 2019-05-08 08:40 | NUR ---
PT READING THE BIBLE, STANDING AND RAISING HIS HANDS IN JEW AND TALKING TO THE AIR. PT ASKED FOR DEODORANT. GETTING THIS FOR HIM.
--- NOTE | 2019-05-08 11:46 | NUR ---
pt is sleeping now, rr unlabored, will continue to monitor
--- NOTE | 2019-05-08 18:26 | NUR ---
PT is pleasant, sitting up in bed eating dis dinner.
--- NOTE | 2019-05-08 19:24 | NUR ---
PT ate dinner tray and washed up in the bathroom. Pt is cooperative with 1:1 assessment and is observed talking to "mireille" and praying.
[2019-05-08 19:51] VITALS: BP 132/69
== END 2019-05-08 19:45 ==
LOC: ER 14:39
DX: F20.0 Paranoid schizophrenia (principal); F79 Unspecified intellectual disabilities; R45.851 Suicidal ideations; Z59.0 Homelessness; Z88.0 Allergy status to penicillin; Z79.899 Other long term (current) drug therapy
CPT/HCPCS: 36415; 80053; 80305; 80320; 81003; 84443; 85025; 99285

== ENCOUNTER 2019-05-21 11:19 | Emergency (ER) | payer MEDICAID ==
[~2019-05-21] VITALS: Ht 188 cm; Wt 152.3 kg
[~2019-05-21 11:19] MED LIST changes: +UNABLE TO OBTAIN
--- NOTE | 2019-05-21 11:25 | NUR ---
patient arrived escorted in by EMS and a rating officer as he came in his eyes were closed and his hands were in the air and he was praying. The patient was escorted to his bed and asked to get into the green scrubs and he complied. The patient's respirations appear normal and he is not in any distress at this time.
[2019-05-21] MEDS ORDERED: HYDR50CA5 PO (11:49)
[2019-05-21] MEDS ORDERED: PALI6TAB PO (11:51)
[2019-05-21] MEDS ORDERED: DIVA-76 PO (11:53)
[2019-05-21] MEDS ORDERED: PALI234D IM (11:53)
[2019-05-21 12:19] LABS: BASOPHILS % (AUTO) 0.5 % (0-1); EOSINOPHILS # (AUTO) 0.2 X10'3 (0-0.9); EOSINOPHILS % (AUTO) 2.4 % (0-6); HEMATOCRIT 40.9 % (42.0-52.0); HEMOGLOBIN 13.9 g/dl (14.0-17.9); LYMPHOCYTES # (AUTO) 1.4 X10'3 (1.1-4.8); LYMPHOCYTES % (AUTO) 18.6 % (21-51); MEAN CORPUSCULAR HEMOGLOBIN 29.9 PG (27.0-31.0); MEAN CORPUSCULAR HGB CONC 34.1 g/dL (33.0-36.5); MEAN CORPUSCULAR VOLUME 87.8 FL (78-98); MEAN PLATELET VOLUME 8.2 FL (7.4-10.4); MONOCYTES # (AUTO) 0.6 X10'3 (0-0.9); MONOCYTES % (AUTO) 7.6 % (2-12); NEUTROPHILS # (AUTO) 5.5 X10'3 (1.8-7.7); NEUTROPHILS % (AUTO) 70.9 % (42-75); PLATELET COUNT 214 X10'3 (140-440); RED BLOOD COUNT 4.65 X10'6 (4.70-6.10); WHITE BLOOD COUNT 7.8 X10'3 (4.5-11.0)
[2019-05-21 12:32] LABS: ALANINE AMINOTRANSFERASE 56 U/L (12-78); ALBUMIN 3.5 G/DL (3.4-5.0); ALBUMIN/GLOBULIN RATIO 1.1 (1.1-1.5); ALKALINE PHOSPHATASE 93 IU/L (46-116); ANION GAP 7 (8-16); BILIRUBIN,TOTAL 0.5 MG/DL (0.1-1.0); BLOOD UREA NITROGEN 9 MG/DL (7-18); BUN/CREATININE RATIO 9.5 (5.4-32.0); CALCIUM 8.4 MG/DL (8.5-10.1); CHLORIDE 106 MMOL/L (99-107); CREATININE 0.95 MG/DL (0.60-1.10); GLUCOSE 114 MG/DL (70-104); SODIUM 140 MMOL/L (135-145); TOTAL CARBON DIOXIDE 27.4 MMOL/L (24-32); TOTAL PROTEIN 6.8 G/DL (6.4-8.2); VALPROATE 63 UG/ML (50-100); eGFR 87 ML/MIN
[2019-05-21 12:40] LABS: ASPARTATE AMINO TRANSFERASE 36 U/L (10-37); POTASSIUM 4.7 MMOL/L (3.5-5.1)
[2019-05-21 12:41] LABS: ETHANOL < 0.010 GM/DL (0.0-0.010)
--- NOTE | 2019-05-21 12:50 | NUR ---
patient is currently pacing and praying, the patient's respirations appear normal and is not in any distress at this time.
[2019-05-21] MEDS ORDERED: paliperidone palmitate inj 234 MG/1.5 ML SYRINGE IM SCH (12:55)
[2019-05-21 13:13] LABS: URINE AMPHETAMINE SCREEN NEGATIVE (Neg); URINE BARBITUATE SCREEN NEGATIVE (Neg); URINE BENZODIAZEPINES SCREEN NEGATIVE (Neg); URINE CANNABINOID SCREEN NEGATIVE (Neg); URINE COCAINE SCREEN NEGATIVE (Neg); URINE METHADONE SCREEN NEGATIVE (Neg); URINE OPIATE SCREEN NEGATIVE (Neg); URINE PHENCYCLIDINE SCREEN NEGATIVE (Neg)
--- NOTE | 2019-05-21 13:19 | NUR ---
PACKET FAXED TO [facility]
--- NOTE | 2019-05-21 13:49 | NUR ---
PT INTERMITTENTLY STANDING AT SIDE OF BED LIFTING HIS HANDS, CLOSING HIS EYES, AND QUIETLY PRAYING. PT ASKING FOR US TO HOLD HIS DINNER TRAY SINCE HE IS FASTING.
[2019-05-21] MEDS ORDERED: hydrOXYzine 25 MG tablet PO PRN (14:00)
--- NOTE | 2019-05-21 14:46 | NUR ---
patient is currently pacing the floor with bible in hand occasionally stopping and saying a prayer, the patient's respirations appear normal and he is not in any distress at this time.
--- NOTE | 2019-05-21 15:46 | NUR ---
patient laying on right side in bed attempting to sleep, patient's respirations appear normal and not in any distress at this time.
[2019-05-21 16:29] LABS: CLARITY,URINE CLEAR (Clear); COLOR,URINE YELLOW (Yellow); GLUCOSE, URINE NEGATIVE (Neg); KETONES,URINE 15 mg/dl (Neg); LEUKOCYTE ESTERASE ,URINE NEGATIVE (Neg); NITRITES, URINE NEGATIVE (Neg); OCCULT BLOOD,URINE NEGATIVE (Neg); PROTEIN,URINE TRACE mg/dl (Neg); UROBILINOGEN,URINE 0.2 E.U/dL (0.2-1.0)
[2019-05-21 16:33] LABS: UA COLLECTION TYPE CLN CATCH MIDSTREAM
[2019-05-21 16:37] LABS: BACTERIA,URINE FEW /HPF (Neg); MUCUS STRANDS NONE SEEN /LPF (Neg); RBC,URINE 0-2 /HPF (0-2); SQUAMOUS EPITHELIAL CELL,UR NONE SEEN /LPF (FEW)
--- NOTE | 2019-05-21 16:49 | NUR ---
patient is pacing back and forth, respirations appear normal and is not in any distress at this time
--- NOTE | 2019-05-21 17:53 | NUR ---
patient is sitting on side of bed, respirations appear normal and he is not in any distress at this time.
--- NOTE | 2019-05-21 18:44 | NUR ---
Day shift RN advises that [facility] Department advises to hold Invegra injecton. There is a possibility it was given recently. When patient is transfered out the new facility can make decision on Invegra administration.
--- NOTE | 2019-05-21 18:46 | NUR ---
Patient ambulatory/pacing the unit. Patient is religiously preoccupied. Patient experiencing some paranoia. Patient is oriented to person, perhaps place. He is tearful at times. Patient is cooperative with this ad writer at this time. Patient is redirected to his bed and encouraged to eat his dinner.
[2019-05-21] MEDS ORDERED: LORazepam 1 MG tablet PO ONE (19:10)
--- NOTE | 2019-05-21 19:24 | NUR ---
Patient is in bed laying on his left side. He is anxious and crying. PO Ativan 1mg was given for anxiety. We are awaiting [facility] to transfer this patient to [facility]. A note will be sent with this patient describing why Invegra was held this am. It will include info about Ativan given tonight and also patients scheduled Depakote which will be due at 2100 hours.
--- NOTE | 2019-05-21 19:49 | NUR ---
Patient up to bathroom. On return to bed he is still responding to internal stimuli. He is talking to God.
--- NOTE | 2019-05-21 19:52 | NUR ---
[facility] is here to transport this patient to [facility]. Patilent is changing into his street clothing. He is delusional but cooperative at this time.
--- NOTE | 2019-05-21 19:59 | NUR ---
Patient has had a clothing change. He is delusional but cooperative. Belongings are given to [facility] professional driver. Patient is ambulatory and being escorted by security to the transport car. The recycling collections driver has possetion of the original 5150.
[2019-05-21 20:03] VITALS: BP 159/94
[2019-05-21] MEDS ORDERED: PALIPERIDONE 3 MG TAB.ER.24 PO SCH (21:00)
[2019-05-21] MEDS ORDERED: divalproex sodium 500mg tablet.DR PO SCH (21:00)
== END 2019-05-21 20:08 ==
LOC: ER 11:20
DX: R45.851 Suicidal ideations (principal); F23 Brief psychotic disorder; R11.2 Nausea with vomiting, unspecified; Z90.49 Acquired absence of other specified parts of digestive tract; Z59.0 Homelessness; Z88.0 Allergy status to penicillin; Z79.899 Other long term (current) drug therapy
CPT/HCPCS: 36415; 80053; 80164; 80305; 80320; 81001; 85025; 87088; 99285; Z7610

== ENCOUNTER 2019-10-11 09:41 | Emergency (ER) | payer MEDICAID ==
[~2019-10-11] VITALS: Ht 188 cm; Wt 152.2 kg
[~2019-10-11 09:41] MED LIST changes: -DIPH25CA83 PO; +DIVA-76 PO; -HALO5TAB PO; +HYDR50CA5 PO; -LORA-269 PO; -OLAN10TA3 PO; -OLAN20TA3 PO; -OMEP20TA23 PO; +PALI234D IM; +PALI6TAB PO; -TEMA30CA5 PO; -UNABLE TO OBTAIN
[2019-10-11 10:09] LABS: BASOPHILS % (AUTO) 0.5 % (0-1); EOSINOPHILS # (AUTO) 0.1 X10'3 (0-0.9); EOSINOPHILS % (AUTO) 1.5 % (0-6); HEMATOCRIT 46.3 % (42.0-52.0); HEMOGLOBIN 15.8 g/dl (14.0-17.9); LYMPHOCYTES # (AUTO) 1.5 X10'3 (1.1-4.8); LYMPHOCYTES % (AUTO) 21.2 % (21-51); MEAN CORPUSCULAR HEMOGLOBIN 29.8 PG (27.0-31.0); MEAN CORPUSCULAR VOLUME 87.6 FL (78-98); MEAN PLATELET VOLUME 7.9 FL (7.4-10.4); MONOCYTES # (AUTO) 0.5 X10'3 (0-0.9); MONOCYTES % (AUTO) 7.5 % (2-12); NEUTROPHILS % (AUTO) 69.3 % (42-75); PLATELET COUNT 255 X10'3 (140-440); RED BLOOD COUNT 5.29 X10'6 (4.70-6.10); RED CELL DISTRIBUTION WIDTH 14.1 % (11.5-14.5); WHITE BLOOD COUNT 7.2 X10'3 (4.5-11.0)
[2019-10-11 10:23] LABS: ALANINE AMINOTRANSFERASE 85 U/L (12-78); ALBUMIN 4.2 G/DL (3.4-5.0); ALBUMIN/GLOBULIN RATIO 1.1 (1.1-1.5); ALKALINE PHOSPHATASE 79 IU/L (46-116); ANION GAP 9 (8-16); ASPARTATE AMINO TRANSFERASE 39 U/L (10-37); BILIRUBIN,TOTAL 0.6 MG/DL (0.1-1.0); BLOOD UREA NITROGEN 14 MG/DL (7-18); BUN/CREATININE RATIO 13.6 (5.4-32.0); CALCIUM 8.8 MG/DL (8.5-10.1); CHLORIDE 106 MMOL/L (99-107); CREATININE 1.03 MG/DL (0.60-1.10); ETHANOL < 0.010 GM/DL (0.0-0.010); GLUCOSE 105 MG/DL (70-104); POTASSIUM 4.3 MMOL/L (3.5-5.1); SODIUM 142 MMOL/L (135-145); TOTAL CARBON DIOXIDE 26.6 MMOL/L (24-32); TOTAL PROTEIN 8.2 G/DL (6.4-8.2); eGFR 79 ML/MIN
[2019-10-11] MEDS ORDERED: LORazepam 1 MG tablet PO ONE (12:15)
[2019-10-11] MEDS ORDERED: PERP8TAB6 PO ×2 (12:48)
[2019-10-11] MEDS ORDERED: DIVA500T9 PO ×2 (12:48)
--- NOTE | 2019-10-11 14:17 | NUR ---
pt amb with steady gait from main ER to overflow, pt is calm and cooperative, talking to self, lying quietly on bed
--- NOTE | 2019-10-11 14:23 | NUR ---
[facility] office called for H and P, utox, they are aware pt hasn't given UA yet, assessment from [facility] held for now
--- NOTE | 2019-10-11 14:45 | NUR ---
pt sitting in his room. ua sent
--- NOTE | 2019-10-11 15:00 | NUR ---
pt is sitting in his bed talking to god
[2019-10-11 15:10] LABS: CLARITY,URINE CLEAR (Clear); COLOR,URINE YELLOW (Yellow); GLUCOSE, URINE NEGATIVE (Neg); KETONES,URINE NEGATIVE (Neg); LEUKOCYTE ESTERASE ,URINE NEGATIVE (Neg); NITRITES, URINE NEGATIVE (Neg); OCCULT BLOOD,URINE NEGATIVE (Neg); PH,URINE 6.5 (4.8-8.0); PROTEIN,URINE NEGATIVE (Neg)
[2019-10-11 15:12] LABS: URINE AMPHETAMINE SCREEN NEGATIVE (Neg); URINE BARBITUATE SCREEN NEGATIVE (Neg); URINE BENZODIAZEPINES SCREEN NEGATIVE (Neg); URINE CANNABINOID SCREEN NEGATIVE (Neg); URINE COCAINE SCREEN NEGATIVE (Neg); URINE METHADONE SCREEN NEGATIVE (Neg); URINE OPIATE SCREEN NEGATIVE (Neg); URINE PHENCYCLIDINE SCREEN NEGATIVE (Neg)
[2019-10-11 15:27] LABS: UA COLLECTION TYPE CLN CATCH MIDSTREAM
--- NOTE | 2019-10-11 16:08 | NUR ---
pt continues to be talking to himself
[2019-10-11 17:30] VITALS: BP 181/104
--- NOTE | 2019-10-11 17:43 | NUR ---
nurse to nurse given to mark rn at [facility]
--- NOTE | 2019-10-11 17:45 | NUR ---
pt accepted at [facility]
--- NOTE | 2019-10-11 17:52 | NUR ---
[employer] driver is coming at 1945
[2019-10-11] MEDS ORDERED: perphenazine 8mg tablets PO SCH (21:00)
[2019-10-11] MEDS ORDERED: divalproex sod 250mg ER (24-hour) tablet PO SCH (21:00)
[2019-10-12] MEDS ORDERED: perphenazine 8mg tablets PO SCH (08:00)
[2019-10-12] MEDS ORDERED: divalproex sod 250mg ER (24-hour) tablet PO SCH (08:00)
== END 2019-10-11 20:46 ==
LOC: ER 09:41
DX: R44.0 Auditory hallucinations (principal); R74.0 Nonspecific elevation of levels of transaminase and lactic acid dehydrogenase [LDH]; R10.84 Generalized abdominal pain; Z59.0 Homelessness; Z90.49 Acquired absence of other specified parts of digestive tract; Z88.0 Allergy status to penicillin; Z79.899 Other long term (current) drug therapy
CPT/HCPCS: 36415; 80053; 80305; 80320; 81003; 85025; 99285

== ENCOUNTER 2019-10-30 08:21 | Emergency (ER) | payer MEDICAID ==
[~2019-10-30] VITALS: Ht 188 cm; Wt 154.0 kg
[~2019-10-30 08:21] MED LIST changes: -DIVA-76 PO; +DIVA500T9 PO; -HYDR50CA5 PO; -PALI234D IM; -PALI6TAB PO; +PERP8TAB6 PO
--- NOTE | 2019-10-30 09:19 | NUR ---
ASSUMED CARE WHILE RN IS ON 15 MIN BREAK PT. HAS NO NEEDS AT THIS TIME
--- NOTE | 2019-10-30 09:41 | NUR ---
Patient laying in bed. Patient starts crying when RN speaking to him. Patient appears to be responding to internal stimuli. Patient states he hears voices but "I don't want to divulge what they are saying." Although patient states he is urinating on the mattress because God tells him to. RN asked patient a question about suicidal ideation, patient responds and says to himself/voices "I don't know what to tell her." Patient states he lives with room mates and takes Depakote and one other "white pill." Continue to monitor,.
--- NOTE | 2019-10-30 09:47 | NUR ---
Dr Puga evaluating patient. Continue to monitor.
[2019-10-30 10:15] LABS: BASOPHILS % (AUTO) 0.4 % (0-1); EOSINOPHILS # (AUTO) 0.2 X10'3 (0-0.9); EOSINOPHILS % (AUTO) 3.8 % (0-6); HEMATOCRIT 41.2 % (42.0-52.0); LYMPHOCYTES # (AUTO) 1.3 X10'3 (1.1-4.8); MEAN CORPUSCULAR HEMOGLOBIN 30.5 PG (27.0-31.0); MEAN CORPUSCULAR HGB CONC 34.1 g/dL (33.0-36.5); MEAN CORPUSCULAR VOLUME 89.4 FL (78-98); MEAN PLATELET VOLUME 7.4 FL (7.4-10.4); MONOCYTES # (AUTO) 0.8 X10'3 (0-0.9); MONOCYTES % (AUTO) 15.5 % (2-12); NEUTROPHILS # (AUTO) 2.8 X10'3 (1.8-7.7); NEUTROPHILS % (AUTO) 54.3 % (42-75); PLATELET COUNT 187 X10'3 (140-440); RED BLOOD COUNT 4.61 X10'6 (4.70-6.10); RED CELL DISTRIBUTION WIDTH 13.8 % (11.5-14.5); WHITE BLOOD COUNT 5.1 X10'3 (4.5-11.0)
[2019-10-30 10:26] LABS: ALANINE AMINOTRANSFERASE 72 U/L (12-78); ALBUMIN 3.5 G/DL (3.4-5.0); ALBUMIN/GLOBULIN RATIO 1.1 (1.1-1.5); ALKALINE PHOSPHATASE 68 IU/L (46-116); ANION GAP 4 (8-16); ASPARTATE AMINO TRANSFERASE 46 U/L (10-37); BILIRUBIN,TOTAL 0.4 MG/DL (0.1-1.0); BLOOD UREA NITROGEN 9 MG/DL (7-18); BUN/CREATININE RATIO 9.3 (5.4-32.0); CALCIUM 8.2 MG/DL (8.5-10.1); CHLORIDE 105 MMOL/L (99-107); CREATININE 0.97 MG/DL (0.60-1.10); GLUCOSE 113 MG/DL (70-104); SODIUM 140 MMOL/L (135-145); TOTAL CARBON DIOXIDE 30.8 MMOL/L (24-32); TOTAL PROTEIN 6.8 G/DL (6.4-8.2); eGFR 85 ML/MIN
[2019-10-30 10:27] LABS: ETHANOL < 0.010 GM/DL (0.0-0.010)
[2019-10-30 10:28] LABS: URINE AMPHETAMINE SCREEN NEGATIVE (Neg); URINE BARBITUATE SCREEN NEGATIVE (Neg); URINE BENZODIAZEPINES SCREEN NEGATIVE (Neg); URINE CANNABINOID SCREEN NEGATIVE (Neg); URINE COCAINE SCREEN NEGATIVE (Neg); URINE METHADONE SCREEN NEGATIVE (Neg); URINE OPIATE SCREEN NEGATIVE (Neg); URINE PHENCYCLIDINE SCREEN NEGATIVE (Neg)
--- NOTE | 2019-10-30 10:29 | NUR ---
Patient is anxious and pacing. Continue to monitor.
[2019-10-30 11:06] LABS: CLARITY,URINE CLEAR (Clear); COLOR,URINE STRAW (Yellow); GLUCOSE, URINE NEGATIVE (Neg); KETONES,URINE NEGATIVE (Neg); LEUKOCYTE ESTERASE ,URINE NEGATIVE (Neg); NITRITES, URINE NEGATIVE (Neg); OCCULT BLOOD,URINE NEGATIVE (Neg); PROTEIN,URINE NEGATIVE (Neg); UROBILINOGEN,URINE 0.2 E.U/dL (0.2-1.0)
[2019-10-30 11:10] LABS: UA COLLECTION TYPE NON-SPECIFIED
--- NOTE | 2019-10-30 11:20 | NUR ---
Patient acting bizarre. Running up to staff (males and females) walking through the E.R. Overflow area and telling them "I love you". It's startling because patient is a large male. When RN performed the one on one, patient also said "I love you". Patient is heard now and then weeping for a few seconds and then stops. Continue to monitor.
[2019-10-30] MEDS ORDERED: LORazepam 1 MG tablet PO PRN (11:35)
[2019-10-30] MEDS: olanzapine 10mg tablet PO SCH (12:11)
--- NOTE | 2019-10-30 12:14 | NUR ---
PATIENT PACKET WAS FAXED TO [facility].
--- NOTE | 2019-10-30 13:15 | NUR ---
Patient eating lunch. No distress observed. Continue to monitor.
--- NOTE | 2019-10-30 15:20 | NUR ---
Patient pacing. No distress observed. Continue to monitor.
--- NOTE | 2019-10-30 16:55 | NUR ---
Patient on the phone. No distress observed. Continue to monitor.
--- NOTE | 2019-10-30 18:20 | NUR ---
Patient eating. No distress disturbed. Continue to monitor.
--- NOTE | 2019-10-30 19:36 | NUR ---
Patient awake and relegiously fixated. The patient is cooperative. Patient responding to internal stimuli. Patient admits to hearing and following direction of voices. The patient does not discuss what the voices are saying.
--- NOTE | 2019-10-30 23:40 | NUR ---
Patient is sleeping. No distress. In view from the nursing station.
--- NOTE | 2019-10-30 23:51 | NUR ---
Patient is up to bathroom. Patient requested and was given fresh water. Patient reads his bible. Patient is hearing voices, he does not want to discuss what they say?
--- NOTE | 2019-10-31 01:41 | NUR ---
Patient is awake, he rests quietly on his left side in bed.
--- NOTE | 2019-10-31 02:38 | NUR ---
Patient is awake, requesting water. Patient has consumed multiple containes of water. The patient is advised that this is the last container until breakfast. Patient states he is drinking water to repent to Raul. Patient returns to bed.
--- NOTE | 2019-10-31 03:04 | NUR ---
Patient is exhibiting anxiety, audible hallucinations, patient is trying to consume large amounts of water. Patient is redirected to bed.
[2019-10-31] MEDS ORDERED: diphenhydrAMINE 25mg capsule PO ONE (03:05)
[2019-10-31] MEDS ORDERED: LORazepam 1 MG tablet PO ONE (03:05)
[2019-10-31] MEDS ORDERED: OLANZapine 2.5MG tablet PO ONE (03:10)
--- NOTE | 2019-10-31 03:21 | NUR ---
Patient complied with taking medications. Patients bed is nearly sideways from the force of this patient jumping onto it. Patient is warm and dry. No resp distress. Patient knows this writers name, he is delusional and responding to command hallucinations. Patients bed is in view from the nursing station. Frequent rounding is being done for patient safety.
--- NOTE | 2019-10-31 06:38 | NUR ---
Patient sleeping supine and snoring. No distress observed. Continue to monitor.
[2019-10-31] MEDS ORDERED: OLANZapine 2.5MG tablet PO SCH (08:00)
[2019-10-31] MEDS: olanzapine 10mg tablet PO SCH (08:17)
--- NOTE | 2019-10-31 08:25 | NUR ---
Patient awoke for breakfast. Patient got up and used the BR, ambulatory steady gait. Patient took his medication. No distress observed. Patient went back to sleep on left side. Continue to monitor.
--- NOTE | 2019-10-31 09:51 | NUR ---
Patient up and walking around with his very large bible. Patient acting a little bizare, walking in a strange pattern. Continue to monitor.
--- NOTE | 2019-10-31 09:55 | NUR ---
pt resting in bed. primary rn sent to break. no s/s of distress or pain. will continue to monitor. rr of 16.
--- NOTE | 2019-10-31 10:00 | NUR ---
PT ACCEPTED TO [facility]. AWAITING AVAILABLE BED, GOOD HUMOR VENDOR TIME THIS EVENING.
--- NOTE | 2019-10-31 12:31 | NUR ---
Patient standing by the sink near the BR and appears to be responding to internal stimuli. Continue to monitor.
--- NOTE | 2019-10-31 13:04 | NUR ---
Patient eating lunch. No distress observed. Continue to monitor.
--- NOTE | 2019-10-31 14:14 | NUR ---
Patient sleeping on left side. No distress observed. Continue to monitor.
--- NOTE | 2019-10-31 15:07 | NUR ---
Patient sleeping supine. No distress observed. Continue to monitor.
--- NOTE | 2019-10-31 17:03 | NUR ---
Patient sleeping on right side. No distress observed. Continue to monitor.
[2019-10-31 17:17] VITALS: BP 130/63
--- NOTE | 2019-10-31 17:34 | NUR ---
Patient ambulatory to BR, steady gait. No distress observed. Continue to monitor.
== END 2019-10-31 20:50 ==
LOC: ER 08:21
DX: F20.0 Paranoid schizophrenia (principal); F17.200 Nicotine dependence, unspecified, uncomplicated; Z86.14 Personal history of Methicillin resistant Staphylococcus aureus infection; Z90.89 Acquired absence of other organs; Z59.0 Homelessness; Z88.0 Allergy status to penicillin; Z79.899 Other long term (current) drug therapy
CPT/HCPCS: 80053; 80305; 80320; 81003; 85025; 99285; Q0163

== ENCOUNTER 2020-11-01 09:26 | Emergency (ER) | payer BC, MEDICAID ==
[~2020-11-01] VITALS: Ht 188 cm; Wt 138.6 kg
[~2020-11-01 09:26] MED LIST changes: +BENZ1TAB7 PO; +CALA180L4 TP; +DIVA250T4 PO; +DIVA500T2 PO; -DIVA500T9 PO; +PANT40TA54 PO; +SALI45SP MM; +TRAZ-251 PO; +WOOL454C TP
--- NOTE | 2020-11-01 10:10 | NUR ---
Pt BIB EMS from [facility] at 0940. Pt is currently on LPS Conservatorship and left his court ordered placement at [facility] last night without permission. Pt is Schizoaffective d/o, bipolar type and is considered gravely disabled without the support of a [facility]. Pt wanted to go to [facility], but [facility] requesed pt come here. Pt was cooperative with admission process. Pt changed into green scrubs, personal belongings were inventoried and placed in locker. Pt denies S/I, H/I, A/VH. Pt states "Kaleigh, I am really tired can we do this later." Landfill Grader explained that the admit process needed to be completed. When asked why he left [facility] pt stated "I had my reasons."
[2020-11-01 10:25] LABS: BASOPHILS % (AUTO) 0.4 % (0-1); EOSINOPHILS # (AUTO) 0.1 X10'3 (0-0.9); EOSINOPHILS % (AUTO) 0.9 % (0-6); HEMATOCRIT 40.7 % (42.0-52.0); HEMOGLOBIN 14.1 g/dl (14.0-17.9); LYMPHOCYTES # (AUTO) 2.4 X10'3 (1.1-4.8); LYMPHOCYTES % (AUTO) 23.3 % (21-51); MEAN CORPUSCULAR HEMOGLOBIN 31.1 PG (27.0-31.0); MEAN CORPUSCULAR HGB CONC 34.7 g/dL (33.0-36.5); MEAN CORPUSCULAR VOLUME 89.7 FL (78-98); MEAN PLATELET VOLUME 8.1 FL (7.4-10.4); MONOCYTES # (AUTO) 1.1 X10'3 (0-0.9); NEUTROPHILS # (AUTO) 6.6 X10'3 (1.8-7.7); NEUTROPHILS % (AUTO) 64.4 % (42-75); PLATELET COUNT 222 X10'3 (140-440); RED BLOOD COUNT 4.54 X10'6 (4.70-6.10); RED CELL DISTRIBUTION WIDTH 13.4 % (11.5-14.5); WHITE BLOOD COUNT 10.2 X10'3 (4.5-11.0)
[2020-11-01 10:37] LABS: ALANINE AMINOTRANSFERASE 36 U/L (12-78); ALBUMIN 3.5 G/DL (3.4-5.0); ALBUMIN/GLOBULIN RATIO 1.1 (1.1-1.5); ALKALINE PHOSPHATASE 61 IU/L (46-116); ANION GAP 6 (8-16); ASPARTATE AMINO TRANSFERASE 22 U/L (10-37); BILIRUBIN,TOTAL 0.3 MG/DL (0.1-1.0); BLOOD UREA NITROGEN 14 MG/DL (7-18); BUN/CREATININE RATIO 18.4 (5.4-32.0); CALCIUM 8.3 MG/DL (8.5-10.1); CHLORIDE 105 MMOL/L (99-107); CREATININE 0.76 MG/DL (0.60-1.10); GLUCOSE 101 MG/DL (70-104); POTASSIUM 3.7 MMOL/L (3.5-5.1); SODIUM 140 MMOL/L (135-145); TOTAL PROTEIN 6.6 G/DL (6.4-8.2); eGFR > 90 ML/MIN
[2020-11-01 10:46] LABS: ETHANOL < 0.010 GM/DL (0.0-0.010)
--- NOTE | 2020-11-01 11:19 | NUR ---
Pt up to bathroom, able to leave a urine sample. Pacing in front of nurses station.
[2020-11-01 11:37] LABS: CLARITY,URINE CLOUDY (Clear); COLOR,URINE STRAW (Yellow); GLUCOSE, URINE NEGATIVE (Neg); KETONES,URINE NEGATIVE (Neg); LEUKOCYTE ESTERASE ,URINE NEGATIVE (Neg); NITRITES, URINE NEGATIVE (Neg); OCCULT BLOOD,URINE NEGATIVE (Neg); PROTEIN,URINE TRACE mg/dl (Neg); UROBILINOGEN,URINE 0.2 E.U/dL (0.2-1.0)
[2020-11-01 11:43] LABS: UA COLLECTION TYPE CLN CATCH MIDSTREAM
[2020-11-01 11:47] LABS: MUCUS STRANDS FEW /LPF (Neg); SQUAMOUS EPITHELIAL CELL,UR NONE SEEN /LPF (FEW)
[2020-11-01 11:49] LABS: RBC,URINE 0-2 /HPF (0-2); URINE AMPHETAMINE SCREEN NEGATIVE (Neg); URINE BARBITUATE SCREEN NEGATIVE (Neg); URINE BENZODIAZEPINES SCREEN NEGATIVE (Neg); URINE CANNABINOID SCREEN NEGATIVE (Neg); URINE COCAINE SCREEN NEGATIVE (Neg); URINE METHADONE SCREEN NEGATIVE (Neg); URINE OPIATE SCREEN NEGATIVE (Neg); URINE PHENCYCLIDINE SCREEN NEGATIVE (Neg)
[2020-11-01 11:50] LABS: BACTERIA,URINE 1+ /HPF (Neg); SPERM MANY /HPF (NEGATIVE)
[2020-11-01 11:57] LABS: WBC,URINE 0-4 /HPF (0-4)
--- NOTE | 2020-11-01 12:07 | NUR ---
FAXED PACKET [facility]
--- NOTE | 2020-11-01 12:13 | NUR ---
Patient sleeping in supine position. Audible breathing sounds noted. No distress.
--- NOTE | 2020-11-01 12:30 | NUR ---
Covid swab obtained.
[2020-11-01] MEDS ORDERED: PERP8TAB6 PO (12:56)
[2020-11-01] MEDS ORDERED: MULT-1085 PO (12:56)
[2020-11-01] MEDS ORDERED: DOCU100C40 PO (12:56)
[2020-11-01] MEDS ORDERED: TRIH2TAB3 PO (12:56)
[2020-11-01] MEDS ORDERED: [UNRECOGNIZED DRUG - CODE] PO (12:56)
[2020-11-01] MEDS ORDERED: PANT-47 PO (12:56)
--- NOTE | 2020-11-01 14:29 | NUR ---
Pt woke asking when he is going to be moved. Hr Leader explained it sometimes takes time to find placement. Pt said "okay" and went back to sleep.
--- NOTE | 2020-11-01 15:24 | NUR ---
Pt on phone pacing talking about "what a mess I am in." "I need a lot of prayer." Pt is calm.
--- NOTE | 2020-11-01 16:10 | NUR ---
DISCHARGE NOTE: Patient was discharged to [facility] at 1608. Pt was escorted to [facility] with [place], PCT and security. Pt was A&Ox4 stated "I guess now I will get some rest." Personal belongings were sent with staff. Pt was calm and cooperative.
[2020-11-01 16:12] VITALS: BP 131/77
[2020-11-01] MEDS ORDERED: docusate sod 100mg capsule PO SCH (20:00)
[2020-11-01] MEDS ORDERED: trihexyphenidyl 2mg tablet PO SCH (20:00)
[2020-11-01] MEDS ORDERED: perphenazine 8mg tablets PO SCH (20:00)
[2020-11-01] MEDS ORDERED: divalproex 250mg tablet, delayed-release PO SCH (21:00)
[2020-11-02] MEDS ORDERED: multivitamins, therapeutics tablet PO SCH (08:00)
[2020-11-02] MEDS ORDERED: pantoprazole 40mg Tablet.DR PO SCH (08:00)
== END 2020-11-01 16:16 | disposition home or self-care (01) ==
LOC: ER 09:27
DX: F79 Unspecified intellectual disabilities (principal); Z20.822 Contact with and (suspected) exposure to COVID-19; F20.9 Schizophrenia, unspecified; Z86.14 Personal history of Methicillin resistant Staphylococcus aureus infection; Z90.89 Acquired absence of other organs; Z88.0 Allergy status to penicillin; Z79.899 Other long term (current) drug therapy
CPT/HCPCS: 36415; 80053; 80305; 80320; 81001; 84443; 85025; 87635; 99285; C9803

== ENCOUNTER 2022-07-24 23:26 | Emergency (ER) | payer BC, MEDICAID ==
[~2022-07-24] VITALS: Ht 188 cm; Wt 174.0 kg
[~2022-07-24 23:26] MED LIST changes: +ATI1T PO; -BENZ1TAB7 PO; -CALA180L4 TP; +DIVA-111 PO; -DIVA250T4 PO; -DIVA500T2 PO; +DOCU100C40 PO; +MULT-1085 PO; +NICO-668 BC; +PANT-47 PO; -PANT40TA54 PO; -SALI45SP MM; +TRIH2TAB3 PO; -WOOL454C TP
[2022-07-24 23:41] VITALS: BP 151/106
[2022-07-25] MEDS ORDERED: dexamethasone 4mg/ml inj IM ONE (05:30)
[2022-07-25] MEDS ORDERED: HYDROcodone/acetaminophen 10/325mg tab PO ONE (05:30)
[2022-07-25] MEDS ORDERED: azithromycin 250mg tablet PO ONE (05:30)
[2022-07-27] MEDS ORDERED: FLUT16SP2 BOTHNARES ×2 (15:48)
[2022-07-27] MEDS ORDERED: GUAI600T45 PO ×2 (15:48)
[2022-07-27] MEDS ORDERED: BENZ-38 PO ×2 (15:48)
== END 2022-07-25 06:03 | disposition home or self-care (01) ==
LOC: ER 23:27
DX: J02.9 Acute pharyngitis, unspecified (principal); J06.9 Acute upper respiratory infection, unspecified; F17.200 Nicotine dependence, unspecified, uncomplicated; F20.9 Schizophrenia, unspecified; Z86.14 Personal history of Methicillin resistant Staphylococcus aureus infection; Z88.0 Allergy status to penicillin; Z79.899 Other long term (current) drug therapy; Z79.1 Long term (current) use of non-steroidal anti-inflammatories (NSAID); Z79.2 Long term (current) use of antibiotics
CPT/HCPCS: 96372; 99283; J1100

== ENCOUNTER 2022-07-27 03:58 | Emergency (ER) | payer BC, MEDICAID ==
[~2022-07-27] VITALS: Ht 185.4 cm; Wt 171.4 kg
[2022-07-27 04:15] VITALS: BP 151/100
[2022-07-27] MEDS ORDERED: FLUT16SP2 BOTHNARES (15:48)
[2022-07-27] MEDS ORDERED: BENZ-38 PO (15:48)
[2022-07-27] MEDS ORDERED: GUAI600T45 PO (15:48)
== END 2022-07-27 10:31 | disposition left against medical advice (07) ==
LOC: ER 04:00
DX: J02.9 Acute pharyngitis, unspecified (principal); Z53.21 Procedure and treatment not carried out due to patient leaving prior to being seen by health care provider
CPT/HCPCS: 99281

== ENCOUNTER 2023-02-20 17:42 | Emergency (ER) | payer BC, MEDICAID ==
[~2023-02-20] VITALS: Ht 188 cm; Wt 140.9 kg
[~2023-02-20 17:42] MED LIST changes: +ARIP10TA15 PO; -ATI1T PO; -DIVA-111 PO; -DOCU100C40 PO; +FLUT16SP NS; -MULT-1085 PO; -NICO-668 BC; +NICO-907 BC; -PANT-47 PO; -PERP8TAB6 PO; -TRIH2TAB3 PO
--- NOTE | 2023-02-20 19:47 | NUR ---
CALL TO [facility] TO ARRANGE TRANSPORT PER GÓMEZ OBANDO THEY ONLY HAVE TRANSPORT UNTIL 20:30PM. CRN AND PROVIDER NOTIFIED. CALL BACK TO [facility] TO NOTIFY TO SEND TRANSPORT NOW PT WILL BE DC READY SOON.
[2023-02-20 20:12] VITALS: BP 124/70; PULSE 86; RESP 18; TEMP 98; O2SAT 99
== END 2023-02-20 20:16 ==
LOC: ER 17:42
DX: F20.9 Schizophrenia, unspecified; Z86.14 Personal history of Methicillin resistant Staphylococcus aureus infection; Z88.0 Allergy status to penicillin; Z79.899 Other long term (current) drug therapy
CPT/HCPCS: 99283

== ENCOUNTER 2023-05-09 14:37 | Inpatient (IN) | payer BC, MEDICAID ==
[~2023-05-09] VITALS: Ht 188 cm; Wt 150.7 kg
[2023-05-09 15:31] LABS: BILIRUBIN,URINE NEGATIVE (Neg); CLARITY,URINE CLEAR (Clear); COLOR,URINE YELLOW (Yellow); GLUCOSE, URINE NEGATIVE (Neg); KETONES,URINE NEGATIVE (Neg); LEUKOCYTE ESTERASE ,URINE NEGATIVE (Neg); NITRITES, URINE NEGATIVE (Neg); OCCULT BLOOD,URINE NEGATIVE (Neg); PROTEIN,URINE NEGATIVE (Neg); UROBILINOGEN,URINE 0.2 E.U/dL (0.2-1.0)
[2023-05-09 15:40] LABS: URINE AMPHETAMINE SCREEN NEGATIVE (Neg); URINE BARBITUATE SCREEN NEGATIVE (Neg); URINE BENZODIAZEPINES SCREEN NEGATIVE (Neg); URINE CANNABINOID SCREEN NEGATIVE (Neg); URINE COCAINE SCREEN NEGATIVE (Neg); URINE METHADONE SCREEN NEGATIVE (Neg); URINE OPIATE SCREEN NEGATIVE (Neg); URINE PHENCYCLIDINE SCREEN NEGATIVE (Neg)
[2023-05-09 15:44] LABS: UA COLLECTION TYPE VOIDED
[2023-05-09 16:29] LABS: BASOPHILS % (AUTO) 0.6 % (0-1); EOSINOPHILS # (AUTO) 0.1 X10'3 (0-0.9); EOSINOPHILS % (AUTO) 1.8 % (0-6); HEMATOCRIT 45.9 % (42.0-52.0); HEMOGLOBIN 16.1 g/dl (14.0-17.9); LYMPHOCYTES # (AUTO) 1.8 X10'3 (1.1-4.8); LYMPHOCYTES % (AUTO) 21.3 % (21-51); MEAN CORPUSCULAR VOLUME 88.7 FL (78-98); MEAN PLATELET VOLUME 8.2 FL (7.4-10.4); MONOCYTES # (AUTO) 0.4 X10'3 (0-0.9); MONOCYTES % (AUTO) 4.6 % (2-12); NEUTROPHILS # (AUTO) 5.9 X10'3 (1.8-7.7); NEUTROPHILS % (AUTO) 71.7 % (42-75); PLATELET COUNT 237 X10'3 (140-440); RED BLOOD COUNT 5.17 X10'6 (4.70-6.10); RED CELL DISTRIBUTION WIDTH 13.8 % (11.5-14.5); WHITE BLOOD COUNT 8.3 X10'3 (4.5-11.0)
[2023-05-09 16:55] LABS: ALANINE AMINOTRANSFERASE 42 U/L (12-78); ALBUMIN/GLOBULIN RATIO 1.1 (1.1-1.5); ALKALINE PHOSPHATASE 69 IU/L (46-116); ANION GAP 8 (8-16); ASPARTATE AMINO TRANSFERASE 24 U/L (10-37); BILIRUBIN,TOTAL 0.4 MG/DL (0.1-1.0); BLOOD UREA NITROGEN 7 MG/DL (7-18); CHLORIDE 103 MMOL/L (99-107); CREATININE 0.78 MG/DL (0.60-1.10); GLUCOSE 95 MG/DL (70-104); POTASSIUM 4.3 MMOL/L (3.5-5.1); SODIUM 139 MMOL/L (135-145); TOTAL CARBON DIOXIDE 28.5 MMOL/L (24-32); TOTAL PROTEIN 7.6 G/DL (6.4-8.2); eCRCL 138 ML/MIN; eGFR > 90 ML/MIN
[2023-05-09 16:57] LABS: ETHANOL < 10 MG/DL (<10); THYROID STIMULATING HORMONE 1.19 ulU/ml (0.34-4.50)
[2023-05-09] MEDS ORDERED: LORA-269 PO (18:29)
[2023-05-09] MEDS ORDERED: TRAZ-256 PO (18:36)
[2023-05-09] MEDS ORDERED: ARIP10TA9 PO (18:36)
[2023-05-09 19:03] LABS: SALICYLATE 3.4 MG/DL (4.0-20.0)
[2023-05-09 19:05] LABS: ACETAMINOPHEN < 2.0 UG/ML (10-30)
[2023-05-09] MEDS: traZODone 50mg tablet PO SCH (21:18)
[2023-05-09] MEDS: aripiprazole 10MG tablet PO SCH (21:18)
[2023-05-09] MEDS: LORazepam 1 MG tablet PO PRN (21:18)
[2023-05-10] MEDS ORDERED: loperamide 2mg capsule PO PRN (11:35)
[2023-05-10] MEDS ORDERED: magnesium hydroxide 30ml (MOM) UD suspension PO PRN (11:35)
[2023-05-10] MEDS ORDERED: MELA3CAP2 PO (11:59)
[2023-05-10] MEDS ORDERED: PYRI100T10 PO (11:59)
[2023-05-10] MEDS ORDERED: MULT-1085 PO (11:59)
[2023-05-10] MEDS ORDERED: PALI234D IM (11:59)
[2023-05-10] MEDS ORDERED: BISA-77 PO (11:59)
[2023-05-10] MEDS ORDERED: LORA-269 PO (11:59)
[2023-05-10] MEDS: nicotine 21mg patch - 24 hr TD SCH (12:09)
[2023-05-10 12:38] VITALS: BP 104/67; PULSE 86; RESP 16; TEMP 97.8; O2SAT 96
[2023-05-10] MEDS ORDERED: bisacodyl 5mg tablet.DR PO PRN (16:25)
[2023-05-10] MEDS: paliperidone palmitate inj 234 MG/1.5 ML SYRINGE IM SCH (16:25)
[2023-05-10 19:00] VITALS: BP 111/66; PULSE 72; RESP 16; TEMP 97.8; O2SAT 98
[2023-05-10] MEDS: Melatonin 3mg tablet PO SCH (20:07)
[2023-05-10] MEDS: pyridoxine 50mg tablet PO SCH (20:07)
[2023-05-11 07:10] VITALS: RESP 18; O2SAT 96
[2023-05-11] MEDS: multivitamins, therapeutics tablet PO SCH (07:22)
[2023-05-11 07:53] LABS: CHOL/HDL RATIO 4.5 (0.00-4.99); CHOLESTEROL 121 MG/DL (0-200); HDL CHOLESTEROL 27 MG/DL (35-60); LDL CHOLESTEROL 72 MG/DL (50-100); TRIGLYCERIDES 130 MG/DL (20-135)
[2023-05-11 08:00] VITALS: BP 124/74; PULSE 84; RESP 18; TEMP 97.3; O2SAT 96
[2023-05-11 19:00] VITALS: RESP 16; O2SAT 97
[2023-05-11 19:56] VITALS: BP 123/71; PULSE 81; RESP 16; TEMP 98.4; O2SAT 97
[2023-05-12 07:00] VITALS: RESP 14
[2023-05-12] MEDS: atomoxetine 25mg capsule PO SCH (07:09)
[2023-05-12 08:00] VITALS: RESP 14
[2023-05-12 19:00] VITALS: RESP 16
[2023-05-12 19:20] VITALS: RESP 16
[2023-05-13 07:30] VITALS: BP 104/63; PULSE 54; RESP 18; TEMP 98.7; O2SAT 97
[2023-05-13 19:25] VITALS: BP 124/76; PULSE 88; RESP 16; TEMP 98.2; O2SAT 97
[2023-05-13 19:38] VITALS: RESP 16; O2SAT 97
[2023-05-13] MEDS: HALLS - SOOTHE MENTHOL 1.8 MG cough drop LOZENGE MM PRN (20:02)
[2023-05-14] MEDS: acetaminophen 325mg tablet PO PRN (00:34)
[2023-05-14 07:00] VITALS: RESP 16; O2SAT 96
[2023-05-14] MEDS: pantoprazole 40mg Tablet.DR PO SCH (07:22)
[2023-05-14 08:00] VITALS: BP 108/69; PULSE 85; RESP 16; TEMP 96.7; O2SAT 96
[2023-05-14 19:43] VITALS: BP 150/98; PULSE 107; RESP 20; TEMP 97.5; O2SAT 96
[2023-05-15 07:30] VITALS: BP 123/71; PULSE 95; RESP 14; TEMP 96.7; O2SAT 97
[2023-05-15 19:00] VITALS: BP 107/45; PULSE 94; RESP 14; TEMP 97.8; O2SAT 94
[2023-05-15 20:57] VITALS: RESP 14; O2SAT 94
[2023-05-16 07:00] VITALS: RESP 16; O2SAT 95
[2023-05-16 08:00] VITALS: BP 119/76; PULSE 66; RESP 12; TEMP 96.9; O2SAT 95
[2023-05-16] MEDS: NICOTINE POLACRILEX 2 MG LOZENGE BC PRN (11:09)
[2023-05-16 19:30] VITALS: RESP 14
[2023-05-16] MEDS: aripiprazole 15 MG tablet PO SCH (20:52)
[2023-05-17] MEDS: PALIPERIDONE 3 MG TAB.ER.24 PO SCH (07:06)
[2023-05-17 07:40] VITALS: RESP 16; O2SAT 95
[2023-05-17 08:00] VITALS: BP 104/53; PULSE 84; RESP 16; TEMP 97.7; O2SAT 96
[2023-05-17 19:30] VITALS: BP 139/85; PULSE 93; RESP 15; TEMP 97.9; O2SAT 97
[2023-05-18 07:00] VITALS: RESP 16; O2SAT 97
[2023-05-18 08:00] VITALS: BP 120/80; PULSE 72; RESP 16; TEMP 97.1; O2SAT 97
[2023-05-18] MEDS: paliperidone palmitate inj 234 MG/1.5 ML SYRINGE IM SCH (15:06)
[2023-05-18 19:00] VITALS: RESP 16; O2SAT 98
[2023-05-18 20:00] VITALS: BP 121/79; PULSE 88; RESP 16; TEMP 98; O2SAT 98
[2023-05-18] MEDS: aripiprazole 10MG tablet PO SCH (20:19)
[2023-05-19 07:00] VITALS: RESP 14; O2SAT 96
[2023-05-19] MEDS: PALIPERIDONE 3 MG TAB.ER.24 PO SCH (07:26)
[2023-05-19 08:00] VITALS: BP 92/52; PULSE 58; RESP 16; TEMP 96.7; O2SAT 95
[2023-05-19] MEDS: atomoxetine 40 MG capsule PO SCH (08:57)
[2023-05-19 19:35] VITALS: BP 127/74; PULSE 89; RESP 16; TEMP 97.1; O2SAT 96
[2023-05-19 19:40] VITALS: BP 127/74; PULSE 96; RESP 16; TEMP 97.1
[2023-05-19 19:44] VITALS: RESP 16; O2SAT 97
[2023-05-19] MEDS: traZODone 50mg tablet PO SCH (21:00)
[2023-05-20 07:00] VITALS: RESP 16; O2SAT 94
[2023-05-20 08:00] VITALS: BP 124/79; PULSE 60; RESP 16; TEMP 97.6; O2SAT 94
[2023-05-20] MEDS ORDERED: paliperidone palmitate inj 234 MG/1.5 ML SYRINGE IM SCH (10:10)
[2023-05-20 19:00] VITALS: RESP 16; O2SAT 95
[2023-05-20 20:26] VITALS: BP 128/80; PULSE 93; RESP 16; TEMP 97; O2SAT 95
[2023-05-21 07:00] VITALS: RESP 14
[2023-05-21 08:00] VITALS: BP 130/78; PULSE 94; RESP 12; TEMP 97.2; O2SAT 96
[2023-05-21 19:00] VITALS: RESP 15; O2SAT 95
[2023-05-21 20:00] VITALS: BP 120/73; PULSE 80; RESP 15; TEMP 98.5; O2SAT 95
[2023-05-22 07:30] VITALS: BP 102/52; PULSE 65; RESP 16; TEMP 98; O2SAT 96
[2023-05-22] MEDS: nicotine 14mg patch - 24hr TD ONE (12:23)
[2023-05-22 19:00] VITALS: RESP 20; O2SAT 99
[2023-05-22 19:32] VITALS: BP 131/83; PULSE 90; RESP 20; TEMP 97.2; O2SAT 99
[2023-05-23 07:00] VITALS: RESP 16; O2SAT 100
[2023-05-23 08:00] VITALS: BP 114/66; PULSE 62; RESP 16; TEMP 97.8; O2SAT 100
[2023-05-23] MEDS: nicotine 14mg patch - 24hr TD SCH (08:00)
[2023-05-23 19:00] VITALS: RESP 18; O2SAT 96
[2023-05-23 19:27] VITALS: BP 118/84; PULSE 111; RESP 18; TEMP 98.3; O2SAT 96
[2023-05-24 07:00] VITALS: RESP 16; O2SAT 95
[2023-05-24 08:00] VITALS: BP 125/87; PULSE 61; RESP 16; TEMP 98.5; O2SAT 95
[2023-05-24 19:00] VITALS: RESP 14; O2SAT 94
[2023-05-24 20:00] VITALS: BP 115/53; PULSE 72; RESP 14; TEMP 97.9; O2SAT 94
[2023-05-25 07:00] VITALS: BP 126/81; PULSE 90; RESP 14; TEMP 97.1; O2SAT 95
[2023-05-25 19:00] VITALS: RESP 16; O2SAT 96
[2023-05-25 20:00] VITALS: BP 134/78; PULSE 100; RESP 16; TEMP 97.9; O2SAT 96
[2023-05-25] MEDS: HALLS - SOOTHE MENTHOL 1.8 MG cough drop LOZENGE MM PRN (20:36)
[2023-05-25] MEDS: LORazepam 1 MG tablet PO PRN (20:40)
[2023-05-26 07:00] VITALS: BP 103/70; PULSE 126; RESP 18; TEMP 96.9; O2SAT 95
[2023-05-26 10:13] VITALS: PULSE 104
[2023-05-26 19:00] VITALS: BP 132/111; PULSE 92; RESP 18; TEMP 98.5; O2SAT 96
[2023-05-26 23:19] VITALS: BP 135/99; PULSE 87; O2SAT 95
[2023-05-27 07:30] VITALS: BP 109/66; PULSE 75; RESP 20; TEMP 97.7; O2SAT 95
[2023-05-27 19:00] VITALS: RESP 16
[2023-05-27 20:00] VITALS: RESP 16
[2023-05-28 07:00] VITALS: RESP 16
[2023-05-28 08:00] VITALS: RESP 16
[2023-05-28 19:00] VITALS: RESP 18; O2SAT 96
[2023-05-28 20:00] VITALS: BP 106/63; PULSE 61; RESP 18; TEMP 97.1; O2SAT 96
[2023-05-29 07:30] VITALS: BP 132/56; PULSE 63; RESP 18; TEMP 97.9; O2SAT 96
[2023-05-29 19:00] VITALS: RESP 14; O2SAT 96
[2023-05-29 20:00] VITALS: BP 107/68; PULSE 64; RESP 64; TEMP 98; O2SAT 95
[2023-05-30 07:00] VITALS: RESP 16
[2023-05-30 08:00] VITALS: RESP 16
[2023-05-30 19:00] VITALS: RESP 16
[2023-05-30 20:00] VITALS: BP 106/61; PULSE 78; RESP 16; TEMP 97.9; O2SAT 94
[2023-05-31 07:00] VITALS: RESP 16
[2023-05-31 07:23] VITALS: BP 134/74; PULSE 77; RESP 16; TEMP 97.8; O2SAT 94
[2023-05-31 19:30] VITALS: RESP 16; O2SAT 92
[2023-05-31 19:31] VITALS: BP 107/64; PULSE 61; RESP 16; TEMP 98; O2SAT 92
[2023-05-31] MEDS: ibuprofen tablet 400 MG TABLET PO PRN (19:53)
[2023-06-01 07:00] VITALS: BP 117/60; PULSE 62; RESP 16; TEMP 98.1; O2SAT 93
[2023-06-01 19:00] VITALS: RESP 16; O2SAT 96
[2023-06-01 19:35] VITALS: BP 95/45; PULSE 64; RESP 16; TEMP 98; O2SAT 96
[2023-06-02 07:00] VITALS: BP 122/63; PULSE 58; RESP 15; TEMP 98.1; O2SAT 97
[2023-06-02] MEDS: mag hydrox/Alum hydrox/simeth 30ml oral suspension PO PRN (15:29)
[2023-06-02 19:55] VITALS: BP 118/78; PULSE 92; RESP 16; TEMP 97.8; O2SAT 100
[2023-06-02] MEDS: traZODone 50mg tablet PO PRN (21:22)
[2023-06-03 08:00] VITALS: RESP 14
[2023-06-03 19:45] VITALS: RESP 16
[2023-06-03 20:20] VITALS: BP 100/53; PULSE 86; RESP 14; TEMP 98; O2SAT 94
[2023-06-04 07:00] VITALS: BP 120/57; PULSE 67; RESP 12; TEMP 98.6; O2SAT 95
[2023-06-04 19:00] VITALS: RESP 18; O2SAT 97
[2023-06-04 20:00] VITALS: BP 114/56; PULSE 90; RESP 18; TEMP 97.1; O2SAT 97
[2023-06-05 07:00] VITALS: RESP 18; O2SAT 94
[2023-06-05 08:00] VITALS: BP 101/50; PULSE 66; RESP 18; TEMP 98.3; O2SAT 94
[2023-06-05 19:39] VITALS: BP 117/87; PULSE 115; RESP 16; TEMP 98.7; O2SAT 96
[2023-06-06] MEDS: traZODone 50mg tablet PO ONE (01:56)
[2023-06-06 07:00] VITALS: BP 137/88; PULSE 91; RESP 16; TEMP 96.7; O2SAT 96
[2023-06-06 19:00] VITALS: RESP 17; O2SAT 94
[2023-06-06 20:00] VITALS: BP 128/71; PULSE 78; RESP 17; TEMP 97.7; O2SAT 94
[2023-06-07 08:00] VITALS: BP 108/72; PULSE 70; RESP 12; TEMP 97.6; O2SAT 96
[2023-06-07 19:00] VITALS: RESP 16; O2SAT 96
[2023-06-07 20:00] VITALS: BP 178/98; PULSE 110; RESP 16; TEMP 98.3; O2SAT 96
[2023-06-08 08:00] VITALS: RESP 14
[2023-06-08 19:00] VITALS: RESP 19; O2SAT 95
[2023-06-08 20:58] VITALS: BP 120/83; PULSE 103; RESP 19; TEMP 96.2; O2SAT 95
[2023-06-09 07:00] VITALS: RESP 14
[2023-06-09 08:00] VITALS: RESP 14
[2023-06-09 19:44] VITALS: RESP 16; O2SAT 94
[2023-06-09 20:00] VITALS: BP 113/55; PULSE 76; RESP 16; TEMP 97.8; O2SAT 94
[2023-06-10 07:00] VITALS: BP 104/74; PULSE 88; RESP 16; TEMP 96.8; O2SAT 94
[2023-06-10 19:00] VITALS: RESP 16; O2SAT 97
[2023-06-10 20:00] VITALS: BP 100/56; PULSE 67; RESP 16; TEMP 98; O2SAT 97
[2023-06-11 07:00] VITALS: BP 97/73; PULSE 71; RESP 16; TEMP 97.4; O2SAT 95
[2023-06-11 19:52] VITALS: BP 110/60; PULSE 83; RESP 20; TEMP 97.8; O2SAT 96
[2023-06-12 07:00] VITALS: RESP 16; O2SAT 96
[2023-06-12 08:00] VITALS: BP 112/63; PULSE 75; RESP 16; TEMP 97.7; O2SAT 95
[2023-06-12 19:00] VITALS: RESP 15; O2SAT 95
[2023-06-12 20:00] VITALS: BP 108/55; PULSE 60; RESP 15; TEMP 98; O2SAT 95
[2023-06-13 07:00] VITALS: RESP 16; O2SAT 94
[2023-06-13 08:00] VITALS: BP 112/59; PULSE 67; RESP 16; TEMP 98; O2SAT 94
[2023-06-13 19:00] VITALS: RESP 20; O2SAT 94
[2023-06-13 20:00] VITALS: BP 104/58; PULSE 73; RESP 20; TEMP 98.6; O2SAT 94
[2023-06-14 07:54] VITALS: RESP 16; O2SAT 94
[2023-06-14 08:00] VITALS: BP 106/51; PULSE 56; RESP 18; TEMP 98.1; O2SAT 94
[2023-06-14 19:00] VITALS: RESP 14; O2SAT 95
[2023-06-14 19:04] VITALS: BP 108/53; PULSE 77; RESP 14; TEMP 97.9; O2SAT 95
[2023-06-15 07:00] VITALS: BP 97/50; PULSE 55; RESP 14; RESP 16; TEMP 97.7; O2SAT 94
[2023-06-15 19:00] VITALS: RESP 16; O2SAT 95
[2023-06-15 19:31] VITALS: BP 124/75; PULSE 101; RESP 16; TEMP 97.8; O2SAT 95
[2023-06-16 07:00] VITALS: BP 128/63; PULSE 62; RESP 16; TEMP 98.1; O2SAT 92
[2023-06-16] MEDS ORDERED: saliva stimulant agent 45ml spray MM PRN (16:40)
[2023-06-16 19:00] VITALS: RESP 18; O2SAT 99
[2023-06-16 19:28] VITALS: BP 102/75; PULSE 87; RESP 16; TEMP 98.2; O2SAT 99
[2023-06-17 07:00] VITALS: RESP 16; O2SAT 95
[2023-06-17 07:51] VITALS: BP 94/58; PULSE 64; RESP 16; TEMP 97.9; O2SAT 95
[2023-06-17 19:00] VITALS: RESP 16; O2SAT 95
[2023-06-17 20:00] VITALS: BP 109/58; PULSE 64; RESP 16; TEMP 98; O2SAT 95
[2023-06-18 07:30] VITALS: RESP 16
[2023-06-18 19:00] VITALS: RESP 16
[2023-06-18 20:00] VITALS: BP 136/77; PULSE 99; RESP 16; TEMP 98.1; O2SAT 96
[2023-06-19 07:00] VITALS: RESP 16; O2SAT 93
[2023-06-19 08:00] VITALS: BP 104/57; PULSE 82; RESP 16; TEMP 97.7; O2SAT 93
[2023-06-19 19:30] VITALS: BP 111/54; PULSE 78; RESP 19; TEMP 98.2; O2SAT 94
[2023-06-20 07:00] VITALS: RESP 12; O2SAT 100
[2023-06-20 08:45] VITALS: BP 123/53; PULSE 64; RESP 12; TEMP 97.6; O2SAT 100
[2023-06-20 19:30] VITALS: BP 105/75; PULSE 62; RESP 14; TEMP 98.7; O2SAT 92
[2023-06-21 07:00] VITALS: RESP 16; O2SAT 99
[2023-06-21 08:00] VITALS: BP 102/62; PULSE 60; RESP 16; TEMP 97.3; O2SAT 60
[2023-06-21 19:30] VITALS: BP 112/46; PULSE 76; RESP 14; TEMP 98.1; O2SAT 94
[2023-06-22 07:00] VITALS: RESP 16; O2SAT 96
[2023-06-22 07:45] VITALS: BP 124/67; PULSE 113; RESP 16; TEMP 98.1; O2SAT 96
[2023-06-22] MEDS ORDERED: LIDOcaine 2% Viscous 15ml cup MM PRN (08:55)
[2023-06-22 19:00] VITALS: RESP 16; O2SAT 94
[2023-06-22 20:00] VITALS: BP 125/70; PULSE 76; RESP 16; TEMP 97.8; O2SAT 94
[2023-06-23 07:35] VITALS: RESP 16
[2023-06-23 07:50] VITALS: RESP 16
[2023-06-23 11:00] VITALS: PULSE 75; RESP 16; TEMP 97.2; O2SAT 98
[2023-06-23 13:02] VITALS: BP 104/74; PULSE 85; RESP 16; O2SAT 95
[2023-06-23 19:00] VITALS: BP 113/74; PULSE 89; RESP 20; TEMP 98.1; O2SAT 98
[2023-06-24 07:00] VITALS: RESP 15; O2SAT 95
[2023-06-24 08:00] VITALS: BP 119/64; PULSE 113; RESP 14; TEMP 97.5; O2SAT 95
[2023-06-24 19:30] VITALS: BP 125/83; PULSE 89; RESP 18; TEMP 98.1; O2SAT 94
[2023-06-25 07:00] VITALS: RESP 17; O2SAT 95
[2023-06-25 08:00] VITALS: BP 109/62; PULSE 65; RESP 17; TEMP 98; O2SAT 95
[2023-06-25 19:30] VITALS: BP 132/72; PULSE 93; RESP 16; TEMP 97.7; O2SAT 95
[2023-06-26 07:00] VITALS: RESP 16; O2SAT 97
[2023-06-26 08:00] VITALS: BP 110/63; PULSE 86; RESP 16; TEMP 98.1; O2SAT 97
[2023-06-26 19:30] VITALS: BP 130/83; PULSE 80; RESP 16; TEMP 97.6; O2SAT 96
[2023-06-27 07:00] VITALS: RESP 16; O2SAT 99
[2023-06-27 07:23] VITALS: BP 116/62; PULSE 65; RESP 16; TEMP 97.7; O2SAT 94
[2023-06-27 19:00] VITALS: RESP 17; O2SAT 95
[2023-06-27 20:00] VITALS: BP 125/78; PULSE 110; RESP 17; TEMP 98.5; O2SAT 95
[2023-06-27] MEDS: saliva stimulant agent 45ml spray MM PRN (20:50)
[2023-06-27] MEDS ORDERED: LIDOcaine 2% Viscous 15ml cup MM PRN (22:38)
[2023-06-28 07:00] VITALS: RESP 16; O2SAT 93
[2023-06-28 08:00] VITALS: BP 107/74; PULSE 73; RESP 16; TEMP 97.4; O2SAT 93
[2023-06-28 19:00] VITALS: RESP 17; O2SAT 93
[2023-06-28 20:00] VITALS: BP 98/46; PULSE 74; RESP 17; TEMP 98.2; O2SAT 93
[2023-06-29 08:00] VITALS: BP 117/54; PULSE 76; RESP 16; TEMP 98.2; O2SAT 94
[2023-06-29 08:53] VITALS: RESP 16; O2SAT 94
[2023-06-29 19:00] VITALS: RESP 14; O2SAT 94
[2023-06-29 20:00] VITALS: BP 108/63; PULSE 82; RESP 14; TEMP 98.2; O2SAT 94
[2023-06-30 07:00] VITALS: BP 101/68; PULSE 79; RESP 17; TEMP 98.1; O2SAT 96
[2023-06-30 19:00] VITALS: RESP 18; O2SAT 96
[2023-06-30 20:00] VITALS: BP 109/54; PULSE 81; RESP 19; TEMP 97.8; O2SAT 96
[2023-07-01 07:50] VITALS: RESP 16
[2023-07-01 09:01] VITALS: RESP 16
[2023-07-01 19:00] VITALS: RESP 16; O2SAT 95
[2023-07-01 20:00] VITALS: BP 122/70; PULSE 111; RESP 16; TEMP 98.3; O2SAT 95
[2023-07-02 07:00] VITALS: BP 104/65; PULSE 70; RESP 12; TEMP 97.5; O2SAT 95
[2023-07-02 19:00] VITALS: RESP 18; O2SAT 94
[2023-07-02 20:00] VITALS: BP 112/69; PULSE 87; RESP 18; TEMP 98.1; O2SAT 94
[2023-07-03 07:00] VITALS: RESP 12; O2SAT 95
[2023-07-03 08:00] VITALS: BP 124/87; PULSE 94; RESP 12; TEMP 98.2; O2SAT 95
[2023-07-03 19:00] VITALS: RESP 16; O2SAT 96
[2023-07-03 20:00] VITALS: BP 110/76; PULSE 95; RESP 16; TEMP 97.7; O2SAT 96
[2023-07-04 07:00] VITALS: RESP 12; O2SAT 95
[2023-07-04 07:20] VITALS: BP 98/44; PULSE 80; RESP 12; TEMP 97.9; O2SAT 95
[2023-07-04 19:25] VITALS: RESP 18; O2SAT 96
[2023-07-04 19:28] VITALS: BP 142/81; PULSE 85; RESP 18; TEMP 97.2; O2SAT 96
[2023-07-05 07:10] VITALS: RESP 18; O2SAT 96
[2023-07-05 08:00] VITALS: BP 128/82; PULSE 84; RESP 16; TEMP 98.1; O2SAT 96
[2023-07-05 19:00] VITALS: RESP 15; O2SAT 94
[2023-07-05 20:00] VITALS: BP 103/57; PULSE 94; RESP 15; TEMP 97.6; O2SAT 94
[2023-07-06 07:30] VITALS: RESP 16
[2023-07-06] MEDS ORDERED: LIDOcaine 2% Viscous 15ml cup MM PRN (15:20)
[2023-07-06] MEDS: LIDOcaine 2% Viscous 15ml cup MM ONE (15:20)
[2023-07-06 19:00] VITALS: RESP 18; O2SAT 97
[2023-07-06 20:00] VITALS: BP 147/67; PULSE 95; RESP 18; TEMP 98.6; O2SAT 97
[2023-07-07 07:00] VITALS: RESP 16; O2SAT 92
[2023-07-07 08:00] VITALS: BP 101/50; PULSE 83; RESP 16; TEMP 97.8
[2023-07-07] MEDS: atorvastatin 20mg tablet PO SCH (08:49)
[2023-07-07 10:03] LABS: BASOPHILS % (AUTO) 0.5 % (0-1); EOSINOPHILS # (AUTO) 0.3 X10'3 (0-0.9); EOSINOPHILS % (AUTO) 4.8 % (0-6); HEMATOCRIT 43.7 % (42.0-52.0); HEMOGLOBIN 15.1 g/dl (14.0-17.9); LYMPHOCYTES # (AUTO) 1.4 X10'3 (1.1-4.8); MEAN CORPUSCULAR HEMOGLOBIN 30.9 PG (27.0-31.0); MEAN CORPUSCULAR HGB CONC 34.7 g/dL (33.0-36.5); MEAN CORPUSCULAR VOLUME 89.2 FL (78-98); MEAN PLATELET VOLUME 8.2 FL (7.4-10.4); MONOCYTES # (AUTO) 0.3 X10'3 (0-0.9); MONOCYTES % (AUTO) 4.9 % (2-12); NEUTROPHILS # (AUTO) 4.7 X10'3 (1.8-7.7); NEUTROPHILS % (AUTO) 68.8 % (42-75); PLATELET COUNT 200 X10'3 (140-440); RED BLOOD COUNT 4.89 X10'6 (4.70-6.10); RED CELL DISTRIBUTION WIDTH 13.7 % (11.5-14.5); WHITE BLOOD COUNT 6.8 X10'3 (4.5-11.0)
[2023-07-07 10:39] LABS: ALANINE AMINOTRANSFERASE 49 U/L (12-78); ALBUMIN 3.2 G/DL (3.4-5.0); ALBUMIN/GLOBULIN RATIO 0.9 (1.1-1.5); ALKALINE PHOSPHATASE 74 IU/L (46-116); ANION GAP 5 (8-16); ASPARTATE AMINO TRANSFERASE 22 U/L (10-37); BILIRUBIN,TOTAL 0.3 MG/DL (0.1-1.0); BLOOD UREA NITROGEN 15 MG/DL (7-18); BUN/CREATININE RATIO 14.6 (10.0-20.0); CALCIUM 8.1 MG/DL (8.5-10.1); CHLORIDE 104 MMOL/L (99-107); CREATININE 1.03 MG/DL (0.60-1.10); GLUCOSE 208 MG/DL (70-104); POTASSIUM 4.1 MMOL/L (3.5-5.1); SODIUM 138 MMOL/L (135-145); TOTAL CARBON DIOXIDE 29.5 MMOL/L (24-32); TOTAL PROTEIN 6.6 G/DL (6.4-8.2); eCRCL 104 ML/MIN; eGFR 78 ML/MIN
[2023-07-07 11:00] VITALS: BP 126/75; PULSE 88
[2023-07-07 19:00] VITALS: RESP 16; O2SAT 94
[2023-07-07 20:00] VITALS: BP 112/55; PULSE 81; RESP 16; TEMP 98.3
[2023-07-07] MEDS: traZODone 50mg tablet PO PRN (22:49)
[2023-07-08 07:00] VITALS: RESP 16
[2023-07-08 08:00] VITALS: BP 120/82; PULSE 92; RESP 16; TEMP 98.3; O2SAT 94
[2023-07-08] MEDS: nicotine 14mg patch - 24hr TD ONE (14:18)
[2023-07-08 19:00] VITALS: RESP 16; O2SAT 96
[2023-07-08 20:00] VITALS: BP 134/65; PULSE 85; RESP 16; TEMP 97.7; O2SAT 96
[2023-07-09 07:00] VITALS: RESP 16; O2SAT 94
[2023-07-09 08:00] VITALS: BP 98/45; PULSE 74; RESP 16; TEMP 97.8; O2SAT 94
[2023-07-09] MEDS: nicotine 14mg patch - 24hr TD SCH (08:00)
[2023-07-09 19:00] VITALS: RESP 16; O2SAT 93
[2023-07-09 19:55] VITALS: BP 104/52; PULSE 77; RESP 16; TEMP 98.4; O2SAT 93
[2023-07-10 07:00] VITALS: RESP 16; O2SAT 97
[2023-07-10 08:00] VITALS: BP 106/55; PULSE 75; RESP 16; TEMP 98.4; O2SAT 97
[2023-07-10 19:00] VITALS: RESP 16; O2SAT 95
[2023-07-10 20:00] VITALS: BP 127/69; PULSE 90; RESP 16; TEMP 98.7; O2SAT 95
[2023-07-11 07:00] VITALS: RESP 16; O2SAT 94
[2023-07-11 07:58] VITALS: BP 120/65; PULSE 72; RESP 16; TEMP 97.5; O2SAT 94
[2023-07-11 20:00] VITALS: BP 120/55; PULSE 80; RESP 16; TEMP 98.4; O2SAT 94
[2023-07-12 07:45] VITALS: BP 100/74; PULSE 54; RESP 12; TEMP 97; O2SAT 100
[2023-07-12 07:54] VITALS: RESP 16; O2SAT 94
[2023-07-12] MEDS: atomoxetine 40 MG capsule PO SCH (08:41)
[2023-07-12] MEDS: atomoxetine 25mg capsule PO SCH (08:42)
[2023-07-12 20:07] VITALS: BP 117/83; PULSE 100; RESP 18; TEMP 97.8; O2SAT 95
[2023-07-13 08:00] VITALS: BP 127/70; PULSE 78; RESP 18; TEMP 96.6; O2SAT 92
[2023-07-13] MEDS: LORazepam 1 MG tablet PO ONE (11:41)
[2023-07-13] MEDS: paliperidone palmitate inj 234 MG/1.5 ML SYRINGE IM SCH (16:49)
[2023-07-13 19:30] VITALS: BP 130/85; PULSE 99; RESP 18; TEMP 97.9; O2SAT 94
[2023-07-14 07:30] VITALS: RESP 16
[2023-07-14 19:00] VITALS: RESP 16; O2SAT 97
[2023-07-14 20:00] VITALS: BP 139/88; PULSE 102; RESP 16; TEMP 97.8; O2SAT 97
[2023-07-15 07:30] VITALS: BP 153/77; PULSE 71; RESP 18; TEMP 96.7; O2SAT 95
[2023-07-15 19:30] VITALS: BP 103/76; PULSE 120; RESP 0; RESP 16; TEMP 98.9; O2SAT 96
[2023-07-16 07:00] VITALS: RESP 16; O2SAT 94
[2023-07-16 08:00] VITALS: BP 107/54; PULSE 70; RESP 16; TEMP 97.9; O2SAT 94
[2023-07-16 19:00] VITALS: RESP 13; O2SAT 97
[2023-07-16 20:00] VITALS: BP 140/91; PULSE 99; RESP 14; TEMP 97.7; O2SAT 97
[2023-07-17] MEDS: LORazepam 1 MG tablet PO ONE (01:15)
[2023-07-17 07:24] VITALS: RESP 16; O2SAT 94
[2023-07-17 07:33] VITALS: BP 105/51; PULSE 72; RESP 16; TEMP 97.3; O2SAT 97
[2023-07-17 19:00] VITALS: RESP 18; O2SAT 97
[2023-07-17 20:00] VITALS: BP 149/74; PULSE 97; RESP 18; TEMP 97.3; O2SAT 97
[2023-07-18 07:00] VITALS: RESP 16; O2SAT 100
[2023-07-18 07:12] VITALS: BP 104/68; PULSE 87; RESP 16; TEMP 97.2; O2SAT 100
[2023-07-18] MEDS ORDERED: divalproex sod 250mg ER (24-hour) tablet PO ONE (14:35)
[2023-07-18] MEDS: divalproex sodium 500mg tablet.DR PO ONE (14:59)
[2023-07-18 19:23] VITALS: RESP 12; O2SAT 95
[2023-07-18 20:00] VITALS: BP 113/81; PULSE 106; RESP 12; TEMP 97.7; O2SAT 95
[2023-07-18] MEDS: divalproex sodium 500mg tablet.DR PO SCH (20:04)
[2023-07-19 07:15] VITALS: RESP 16; O2SAT 100
[2023-07-19 07:25] VITALS: BP 126/81; PULSE 108; RESP 16; TEMP 97.4; O2SAT 96
[2023-07-19 19:24] VITALS: RESP 18; O2SAT 95
[2023-07-19 20:00] VITALS: BP 116/89; PULSE 116; RESP 20; TEMP 98; O2SAT 95
[2023-07-20 07:00] VITALS: BP 111/84; PULSE 101; RESP 16; TEMP 97.3; O2SAT 96
[2023-07-20 19:00] VITALS: RESP 18; O2SAT 96
[2023-07-20 20:00] VITALS: BP 121/85; PULSE 93; RESP 18; TEMP 98; O2SAT 96
[2023-07-20] MEDS: divalproex 250mg tablet, delayed-release PO SCH (20:53)
[2023-07-21 07:00] VITALS: RESP 20; O2SAT 95
[2023-07-21 07:44] VITALS: BP 135/96; PULSE 114; RESP 20; TEMP 97.2; O2SAT 95
[2023-07-21 19:00] VITALS: RESP 16; O2SAT 95
[2023-07-21 19:24] VITALS: BP 118/75; PULSE 92; RESP 16; TEMP 98.5; O2SAT 95
[2023-07-22 07:00] VITALS: BP 119/79; PULSE 101; RESP 16; TEMP 96.8; O2SAT 96
[2023-07-22 19:51] VITALS: BP 124/86; PULSE 108; RESP 18; TEMP 98.3; O2SAT 95
[2023-07-22] MEDS: traZODone 50mg tablet PO SCH (21:56)
[2023-07-22] MEDS: divalproex 250mg tablet, delayed-release PO SCH (21:56)
[2023-07-23 07:00] VITALS: RESP 17; O2SAT 95
[2023-07-23 08:00] VITALS: BP 124/89; PULSE 101; RESP 17; TEMP 97.4; O2SAT 95
[2023-07-23 19:38] VITALS: RESP 18; O2SAT 96
[2023-07-23 20:00] VITALS: BP 148/87; PULSE 100; RESP 18; TEMP 97.2; O2SAT 96
[2023-07-24 07:00] VITALS: RESP 16; O2SAT 96
[2023-07-24 08:00] VITALS: BP 153/63; PULSE 90; RESP 16; TEMP 96.5; O2SAT 96
[2023-07-24 19:00] VITALS: RESP 18; O2SAT 96
[2023-07-24 20:00] VITALS: BP 134/88; PULSE 103; RESP 18; TEMP 98.7; O2SAT 96
[2023-07-25 07:13] VITALS: BP 109/62; PULSE 64; RESP 16; TEMP 98.1; O2SAT 96
[2023-07-25 07:17] VITALS: RESP 16; O2SAT 96
[2023-07-25 19:00] VITALS: RESP 20; O2SAT 97
[2023-07-25 20:00] VITALS: BP 135/86; PULSE 101; RESP 20; TEMP 97.8; O2SAT 97
[2023-07-26 07:00] VITALS: RESP 14; O2SAT 96
[2023-07-26 08:00] VITALS: BP 122/81; PULSE 94; RESP 14; TEMP 97.4; O2SAT 96
[2023-07-26 19:00] VITALS: RESP 18; O2SAT 97
[2023-07-26 20:00] VITALS: BP 127/77; PULSE 95; RESP 18; TEMP 98.5; O2SAT 97
[2023-07-26] MEDS: traZODone 50mg tablet PO ONE (23:47)
[2023-07-27 07:00] VITALS: BP 106/85; PULSE 99; RESP 18; TEMP 97.5; O2SAT 96
[2023-07-27 19:00] VITALS: RESP 16; O2SAT 96
[2023-07-27 20:00] VITALS: BP 108/76; PULSE 100; RESP 16; TEMP 98; O2SAT 96
[2023-07-27] MEDS: paliperidone palmitate inj 234 MG/1.5 ML SYRINGE IM ONE (22:58)
[2023-07-28] MEDS: divalproex 250mg tablet, delayed-release PO SCH (07:23)
[2023-07-28] MEDS: PALIPERIDONE 3 MG TAB.ER.24 PO SCH (07:23)
[2023-07-28 07:30] VITALS: RESP 18; O2SAT 95
[2023-07-28 07:57] VITALS: BP 128/93; PULSE 102; RESP 18; TEMP 96.8; O2SAT 95
[2023-07-28] MEDS: LORazepam 1 MG tablet PO PRN (14:02)
[2023-07-28] MEDS: OLANZapine 5mg rapidly disint. tablet PO ONE (14:43)
[2023-07-28 19:00] VITALS: RESP 16; O2SAT 97
[2023-07-28 19:13] VITALS: BP 120/68; PULSE 77; RESP 16; TEMP 97.5; O2SAT 97
[2023-07-29 07:30] VITALS: BP 147/75; PULSE 111; RESP 16; TEMP 97.5; O2SAT 95
[2023-07-29] MEDS: OLANZapine 5mg rapidly disint. tablet PO ONE (11:32)
[2023-07-29] MEDS ORDERED: benzocaine (Anbesol) 12ml bottle MM PRN (17:45)
[2023-07-29] MEDS: OLANZapine 5mg rapidly disint. tablet PO PRN (18:01)
[2023-07-29 19:00] VITALS: RESP 16; O2SAT 94
[2023-07-29 19:35] VITALS: BP 118/77; PULSE 102; RESP 16; TEMP 97.3; O2SAT 94
[2023-07-30 07:30] VITALS: BP 139/81; PULSE 83; RESP 16; TEMP 97.4; O2SAT 94
[2023-07-30 19:00] VITALS: BP 102/55; PULSE 74; RESP 14; TEMP 97.8; O2SAT 96
[2023-07-30] MEDS: benzocaine (Anbesol) 12ml bottle MM PRN (23:37)
[2023-07-31 07:00] VITALS: RESP 16; O2SAT 95
[2023-07-31 08:10] VITALS: BP 125/81; PULSE 90; RESP 16; TEMP 97.7; O2SAT 95
[2023-07-31 19:00] VITALS: BP 135/73; PULSE 94; RESP 18; TEMP 97.8; O2SAT 97
[2023-08-01 07:00] VITALS: RESP 16; O2SAT 96
[2023-08-01 08:00] VITALS: BP 137/81; PULSE 83; RESP 16; TEMP 97; O2SAT 96
[2023-08-01 20:00] VITALS: BP 99/78; PULSE 115; RESP 17; TEMP 98.7; O2SAT 94
[2023-08-01 20:05] VITALS: PULSE 81; RESP 16; O2SAT 93
[2023-08-01 21:27] VITALS: PULSE 90; RESP 15; O2SAT 94
[2023-08-01 23:24] VITALS: PULSE 92; RESP 14; O2SAT 97
[2023-08-02 07:00] VITALS: RESP 18; O2SAT 97
[2023-08-02 08:00] VITALS: BP 131/79; PULSE 105; RESP 18; TEMP 97; O2SAT 97
[2023-08-02 16:44] VITALS: PULSE 86; RESP 17; O2SAT 98
[2023-08-02 19:00] VITALS: RESP 16; O2SAT 94
[2023-08-02 20:00] VITALS: BP 131/79; PULSE 81; RESP 16; TEMP 97.5; O2SAT 94
[2023-08-02 20:24] VITALS: PULSE 99; RESP 16; O2SAT 97
[2023-08-03 07:00] VITALS: RESP 18; O2SAT 94
[2023-08-03 08:00] VITALS: BP 141/77; PULSE 84; RESP 18; TEMP 98.4; O2SAT 94
[2023-08-03 19:30] VITALS: RESP 14
[2023-08-03 19:36] VITALS: PULSE 90; RESP 16; O2SAT 96
[2023-08-03 20:00] VITALS: BP 129/68; PULSE 93; RESP 15; TEMP 97.7; O2SAT 94
[2023-08-03] MEDS: traZODone 50mg tablet PO PRN (21:21)
[2023-08-03] MEDS: PALIPERIDONE 3 MG TAB.ER.24 PO SCH (22:04)
[2023-08-04 07:15] VITALS: RESP 18; O2SAT 96
[2023-08-04] MEDS: divalproex 250mg tablet, delayed-release PO SCH (07:26)
[2023-08-04 08:00] VITALS: BP 122/86; PULSE 72; RESP 18; TEMP 96.2; O2SAT 96
[2023-08-04 19:00] VITALS: RESP 16; O2SAT 95
[2023-08-04 19:45] VITALS: BP 119/69; PULSE 78; RESP 16; TEMP 97.8; O2SAT 95
[2023-08-04 20:40] VITALS: PULSE 80; RESP 16; O2SAT 92
[2023-08-04 21:00] VITALS: O2SAT 95
[2023-08-04] MEDS: divalproex sod 250mg ER (24-hour) tablet PO SCH (21:35)
[2023-08-05 07:00] VITALS: RESP 14; O2SAT 92
[2023-08-05 08:00] VITALS: BP 125/67; PULSE 84; RESP 14; TEMP 98.4; O2SAT 92
[2023-08-05 19:08] VITALS: RESP 16; O2SAT 95
[2023-08-05 19:29] VITALS: BP 125/77; PULSE 91; RESP 16; TEMP 97.2; O2SAT 80
[2023-08-05 19:40] VITALS: PULSE 84; RESP 16; O2SAT 96
[2023-08-05] MEDS: acetaminophen 325mg tablet PO PRN (20:23)
[2023-08-05 21:00] VITALS: O2SAT 95
[2023-08-06 07:00] VITALS: RESP 16; O2SAT 96
[2023-08-06 08:00] VITALS: BP 111/72; PULSE 78; RESP 16; TEMP 97.3; O2SAT 96
[2023-08-06 19:00] VITALS: RESP 14; O2SAT 95
[2023-08-06 19:29] VITALS: BP 143/71; PULSE 65; RESP 14; TEMP 97.6; O2SAT 95
[2023-08-06 22:12] VITALS: O2SAT 94
[2023-08-07 07:00] VITALS: RESP 16; O2SAT 96
[2023-08-07 07:37] VITALS: BP 126/63; PULSE 85; RESP 16; TEMP 97; O2SAT 94
[2023-08-07 19:10] VITALS: BP 131/71; PULSE 99; RESP 20; TEMP 97.9; O2SAT 96
[2023-08-08 07:00] VITALS: RESP 12; O2SAT 95
[2023-08-08 07:21] VITALS: BP 131/93; PULSE 84; RESP 12; TEMP 97.1; O2SAT 95
[2023-08-08 19:00] VITALS: RESP 17; O2SAT 94
[2023-08-08 20:00] VITALS: BP 115/76; PULSE 98; RESP 17; TEMP 98.6; O2SAT 98
[2023-08-09 07:00] VITALS: RESP 14
[2023-08-09 08:00] VITALS: BP 122/73; PULSE 96; RESP 18; TEMP 96.2; O2SAT 95
[2023-08-09 19:00] VITALS: RESP 22; O2SAT 95
[2023-08-09 19:16] VITALS: BP 126/91; PULSE 117; RESP 22; TEMP 97.3; O2SAT 95
[2023-08-10 07:50] VITALS: RESP 14
[2023-08-10 08:00] VITALS: BP 120/67; PULSE 85; RESP 16; TEMP 97.1; O2SAT 94
[2023-08-10 19:30] VITALS: RESP 14
[2023-08-10 19:35] VITALS: BP 118/66; PULSE 75; RESP 19; TEMP 97.5; O2SAT 95
[2023-08-11 07:10] VITALS: RESP 14; O2SAT 95
[2023-08-11 08:00] VITALS: BP 122/70; PULSE 81; RESP 14; TEMP 98.5; O2SAT 95
[2023-08-11 19:00] VITALS: RESP 21; O2SAT 95
[2023-08-11 19:31] VITALS: BP 127/82; PULSE 89; RESP 21; TEMP 96.8; O2SAT 95
[2023-08-12 07:40] VITALS: RESP 18; O2SAT 95
[2023-08-12 08:10] VITALS: BP 143/83; PULSE 80; RESP 16; TEMP 98.2; O2SAT 95
[2023-08-12 19:00] VITALS: RESP 18; O2SAT 95
[2023-08-12 20:22] VITALS: BP 0/0; PULSE 80; RESP 18; TEMP 98.2; O2SAT 95
[2023-08-12 21:15] VITALS: BP 127/82; PULSE 95; RESP 18; TEMP 97.3; O2SAT 95
[2023-08-13 07:00] VITALS: BP 141/76; PULSE 81; RESP 12; TEMP 98; O2SAT 93
[2023-08-13 19:00] VITALS: BP 115/69; PULSE 108; RESP 22; TEMP 96; O2SAT 93; O2SAT 95
[2023-08-14 07:03] VITALS: RESP 12; O2SAT 93
[2023-08-14 07:23] VITALS: BP 145/88; PULSE 109; RESP 18; TEMP 96.7; O2SAT 95
[2023-08-14 19:00] VITALS: RESP 16
[2023-08-14 19:20] VITALS: BP 104/57; PULSE 88; RESP 20; TEMP 97; O2SAT 95
[2023-08-14 19:38] VITALS: PULSE 87; RESP 14; O2SAT 97
[2023-08-15 07:08] VITALS: RESP 12; O2SAT 93
[2023-08-15 08:00] VITALS: BP 112/75; PULSE 82; RESP 16; TEMP 97.6; O2SAT 95
[2023-08-15 13:13] VITALS: PULSE 80; RESP 16; O2SAT 95
[2023-08-15 19:12] VITALS: RESP 16
[2023-08-15 19:16] VITALS: BP 125/84; PULSE 95; RESP 18; TEMP 97.2; O2SAT 96
[2023-08-16 07:00] VITALS: RESP 16; O2SAT 97
[2023-08-16 08:00] VITALS: BP 117/78; PULSE 85; RESP 16; TEMP 98.4; O2SAT 94
[2023-08-16 19:09] VITALS: RESP 14
[2023-08-16 19:47] VITALS: BP 128/75; PULSE 88; RESP 17; TEMP 98.3; O2SAT 98
[2023-08-17 07:00] VITALS: RESP 18
[2023-08-17 07:30] VITALS: BP 109/70; PULSE 87; RESP 18; TEMP 98.3; O2SAT 94
[2023-08-17 19:36] VITALS: RESP 16; O2SAT 97
[2023-08-17 19:38] VITALS: BP 117/75; PULSE 87; RESP 16; TEMP 98.1; O2SAT 97
[2023-08-17 20:10] VITALS: PULSE 86; RESP 16; O2SAT 96
[2023-08-18 07:28] VITALS: RESP 14; O2SAT 98
[2023-08-18 07:31] VITALS: BP 150/87; PULSE 84; RESP 14; TEMP 97.6; O2SAT 98
[2023-08-18 19:22] VITALS: BP 104/73; PULSE 75; RESP 14; TEMP 98.9; O2SAT 98
[2023-08-18 21:16] VITALS: PULSE 86; RESP 16; O2SAT 95
[2023-08-19 07:07] VITALS: BP 156/91; PULSE 96; RESP 18; TEMP 97.4; O2SAT 94
[2023-08-19 07:40] VITALS: RESP 18; O2SAT 94
[2023-08-19] MEDS: HALLS - SOOTHE MENTHOL 1.8 MG cough drop LOZENGE MM PRN (11:29)
[2023-08-19] MEDS ORDERED: HALLS - SOOTHE MENTHOL 1.8 MG cough drop LOZENGE MM PRN (11:35)
[2023-08-19 19:00] VITALS: RESP 16; O2SAT 95
[2023-08-19 19:36] VITALS: PULSE 102; RESP 16; O2SAT 95
[2023-08-19 20:40] VITALS: BP 123/69; PULSE 104; RESP 16; TEMP 97.7; O2SAT 95
[2023-08-20 07:18] VITALS: RESP 19; O2SAT 97
[2023-08-20 08:20] VITALS: BP 140/80; PULSE 84; RESP 18; TEMP 97; O2SAT 97
[2023-08-20 18:45] VITALS: RESP 16; RESP 17; O2SAT 95
[2023-08-20 19:00] VITALS: BP 108/66; PULSE 86; RESP 17; TEMP 98.6; O2SAT 95
[2023-08-20 21:27] VITALS: PULSE 78; RESP 25; O2SAT 95
[2023-08-21] VITALS (7 sets, daily range): BP systolic 120–140; BP diastolic 67–70; PULSE 62–101; RESP 16; TEMP 96.8–98; O2SAT 95–98
[2023-08-21] MEDS: oxymetazoline 15 ML nasal spray NS SCH (20:37)
[2023-08-22 07:00] VITALS: RESP 16; O2SAT 95
[2023-08-22 07:30] VITALS: BP 117/67; PULSE 71; RESP 16; TEMP 97.1; O2SAT 95
[2023-08-22 19:00] VITALS: RESP 16; O2SAT 95
[2023-08-22 19:45] VITALS: PULSE 93; RESP 16; O2SAT 96
[2023-08-22 20:00] VITALS: BP 133/89; PULSE 98; RESP 16; TEMP 98.3; O2SAT 96
[2023-08-22 22:00] VITALS: O2SAT 98
[2023-08-23 07:00] VITALS: RESP 16; O2SAT 97
[2023-08-23 08:00] VITALS: BP 124/90; PULSE 78; RESP 20; TEMP 97.6; O2SAT 97
[2023-08-23 19:30] VITALS: BP 119/76; PULSE 104; RESP 18; TEMP 97.8; O2SAT 97
[2023-08-23 21:00] VITALS: O2SAT 97
[2023-08-24 07:30] VITALS: BP 116/77; PULSE 82; RESP 20; TEMP 96.7; O2SAT 96
[2023-08-24 19:00] VITALS: BP 121/65; PULSE 82; RESP 16; TEMP 97.8; O2SAT 96
[2023-08-24 19:30] VITALS: O2SAT 96
[2023-08-24 21:00] VITALS: O2SAT 96
[2023-08-25 07:00] VITALS: RESP 16; O2SAT 94
[2023-08-25 07:30] VITALS: BP 105/72; PULSE 72; RESP 16; TEMP 97.6; O2SAT 94
[2023-08-25] MEDS: divalproex 250mg tablet, delayed-release PO SCH (07:48)
[2023-08-25] MEDS: fluticasone nasal spray 16GM bottle NS SCH (12:20)
[2023-08-25 19:30] VITALS: BP 128/65; PULSE 87; RESP 16; TEMP 98.4; O2SAT 94
[2023-08-25 21:14] VITALS: PULSE 92; RESP 16; O2SAT 97
[2023-08-26 07:30] VITALS: BP 128/85; PULSE 78; RESP 16; TEMP 98.4; O2SAT 97
[2023-08-26] MEDS: saliva stimulant agent 45ml spray MM PRN (09:14)
[2023-08-26 20:06] VITALS: BP 109/70; PULSE 99; RESP 16; TEMP 97.4; O2SAT 97
[2023-08-27 11:12] VITALS: PULSE 82; RESP 18; O2SAT 98
[2023-08-27] MEDS: hydrOXYzine 25 MG tablet PO PRN (13:52)
[2023-08-27 19:30] VITALS: BP 114/62; PULSE 76; RESP 16; TEMP 97.8; O2SAT 94
[2023-08-27 19:43] VITALS: RESP 16; O2SAT 94
[2023-08-27] MEDS: fluticasone nasal spray 16GM bottle NS SCH (19:59)
[2023-08-28 07:00] VITALS: RESP 16; O2SAT 96
[2023-08-28 08:00] VITALS: BP 140/73; PULSE 88; RESP 16; TEMP 97.3; O2SAT 96
[2023-08-28] MEDS: salt irrigation nasal spray 45 ML SPRAY NS PRN (08:13)
[2023-08-28 10:04] VITALS: PULSE 117; RESP 15; O2SAT 95
[2023-08-28 19:00] VITALS: BP 124/87; PULSE 96; RESP 18; TEMP 97.5; O2SAT 95
[2023-08-28 21:00] VITALS: O2SAT 95
[2023-08-29 07:28] VITALS: RESP 12; O2SAT 95
[2023-08-29 07:30] VITALS: BP 152/79; PULSE 85; RESP 12; TEMP 97.2; O2SAT 95
[2023-08-29 19:30] VITALS: BP 134/93; PULSE 97; RESP 17; TEMP 97.4; O2SAT 96
[2023-08-29 21:00] VITALS: O2SAT 93
[2023-08-30 07:00] VITALS: RESP 20; O2SAT 95
[2023-08-30 08:00] VITALS: BP 144/90; PULSE 97; RESP 20; TEMP 97.8; O2SAT 95
[2023-08-30 19:30] VITALS: BP 138/81; PULSE 74; RESP 16; TEMP 97.3; O2SAT 95
[2023-08-30 21:00] VITALS: O2SAT 94
[2023-08-31 06:45] VITALS: RESP 16
[2023-08-31 07:30] VITALS: RESP 16
[2023-08-31] MEDS: salt irrigation nasal spray 45 ML SPRAY NS PRN (13:47)
[2023-08-31 20:00] VITALS: BP 107/59; PULSE 69; RESP 16; TEMP 97.5; O2SAT 94
[2023-08-31 21:45] VITALS: O2SAT 93
[2023-09-01 07:00] VITALS: RESP 16
[2023-09-01 19:00] VITALS: RESP 20; O2SAT 96
[2023-09-01 19:47] VITALS: BP 167/87; PULSE 97; RESP 20; TEMP 97.9; O2SAT 96
[2023-09-01 21:00] VITALS: O2SAT 96
[2023-09-02 07:00] VITALS: RESP 16; O2SAT 95
[2023-09-02 08:00] VITALS: BP 97/73; PULSE 108; RESP 20; TEMP 97.7
[2023-09-02 19:00] VITALS: RESP 16; O2SAT 97
[2023-09-02 20:41] VITALS: BP 126/88; PULSE 101; RESP 16; TEMP 97.8
[2023-09-02 21:00] VITALS: O2SAT 97
[2023-09-03 07:00] VITALS: BP 142/72; PULSE 82; RESP 16; TEMP 97.2; O2SAT 96
[2023-09-03 20:46] VITALS: RESP 16
[2023-09-04 07:00] VITALS: RESP 16; O2SAT 96
[2023-09-04 08:00] VITALS: BP 117/73; PULSE 77; RESP 16; TEMP 97.4; O2SAT 97
[2023-09-04] MEDS: fluticasone nasal spray 16GM bottle NS SCH (08:15)
[2023-09-04 19:00] VITALS: RESP 16; O2SAT 95
[2023-09-04 20:00] VITALS: BP 126/79; PULSE 94; RESP 16; TEMP 98.9; O2SAT 95
[2023-09-04 21:00] VITALS: O2SAT 91
[2023-09-05 07:33] VITALS: RESP 16; O2SAT 96
[2023-09-05 08:00] VITALS: BP 130/76; PULSE 95; RESP 16; TEMP 97.2; O2SAT 97
[2023-09-05 19:48] VITALS: BP 166/85; PULSE 89; RESP 16; TEMP 97.7; O2SAT 93
[2023-09-05 21:00] VITALS: O2SAT 93
[2023-09-06 07:01] VITALS: RESP 16; O2SAT 96
[2023-09-06 08:00] VITALS: BP 116/56; PULSE 63; RESP 16; TEMP 97; O2SAT 95
[2023-09-06 19:00] VITALS: RESP 22; O2SAT 97
[2023-09-06 20:00] VITALS: BP 129/81; PULSE 94; RESP 16; TEMP 97; O2SAT 95
[2023-09-06 21:00] VITALS: O2SAT 98
[2023-09-07 07:00] VITALS: BP 124/75; PULSE 73; RESP 17; TEMP 98.1; O2SAT 97
[2023-09-07 20:25] VITALS: BP 111/72; PULSE 95; RESP 22; TEMP 98; O2SAT 96
[2023-09-07 21:51] VITALS: O2SAT 97
[2023-09-07 21:53] VITALS: O2SAT 97
[2023-09-08 07:00] VITALS: BP 123/76; PULSE 92; RESP 20; TEMP 97.6; O2SAT 99
[2023-09-08 19:48] VITALS: BP 122/70; PULSE 71; RESP 19; TEMP 98.3; O2SAT 97
[2023-09-09 07:00] VITALS: BP 137/96; PULSE 79; RESP 14; TEMP 98.3; O2SAT 97
[2023-09-09 20:00] VITALS: BP 111/66; PULSE 85; RESP 16; TEMP 97.8; O2SAT 95
[2023-09-10 07:00] VITALS: RESP 16; O2SAT 95
[2023-09-10 08:00] VITALS: BP 137/88; PULSE 82; RESP 16; TEMP 96.8; O2SAT 95
[2023-09-10 19:00] VITALS: RESP 16; O2SAT 95
[2023-09-10 20:00] VITALS: BP 147/80; PULSE 85; RESP 16; TEMP 97.6; O2SAT 96
[2023-09-11 07:00] VITALS: RESP 17; O2SAT 97
[2023-09-11 08:00] VITALS: BP 134/78; PULSE 68; RESP 17; TEMP 97.6; O2SAT 97
[2023-09-11 19:00] VITALS: RESP 15; O2SAT 95
[2023-09-11 20:00] VITALS: BP 134/78; PULSE 68; RESP 15; TEMP 97.8; O2SAT 95
[2023-09-11 21:00] VITALS: O2SAT 97
[2023-09-12 07:19] VITALS: RESP 17; O2SAT 97
[2023-09-12] MEDS: metFORMIN 500mg tablet PO SCH (07:59)
[2023-09-12] MEDS: multivitamins, therapeutics tablet PO SCH (07:59)
[2023-09-12 08:00] VITALS: BP 138/75; PULSE 82; RESP 16; TEMP 96.4; O2SAT 95
[2023-09-12 19:00] VITALS: RESP 16; O2SAT 94
[2023-09-12 19:20] VITALS: BP 117/75; PULSE 87; RESP 16; TEMP 97.8; O2SAT 94
[2023-09-13 07:26] VITALS: RESP 17; O2SAT 97
[2023-09-13 08:00] VITALS: BP 136/73; PULSE 88; RESP 17; RESP 18; TEMP 98.1; O2SAT 95; O2SAT 97
[2023-09-13 19:00] VITALS: RESP 17; O2SAT 97
[2023-09-13 20:00] VITALS: BP 124/86; PULSE 90; RESP 22; TEMP 97.7; O2SAT 95; O2SAT 97
[2023-09-14 07:00] VITALS: RESP 16; O2SAT 97
[2023-09-14 08:00] VITALS: BP 132/70; PULSE 90; RESP 20; TEMP 97.6; O2SAT 95
[2023-09-14 20:46] VITALS: BP 113/66; PULSE 64; RESP 20; TEMP 98; O2SAT 95
[2023-09-14 21:47] VITALS: O2SAT 94
[2023-09-15 07:00] VITALS: RESP 18; O2SAT 56
[2023-09-15 08:00] VITALS: BP 104/49; PULSE 56; RESP 18; TEMP 97.9; O2SAT 95
[2023-09-15 19:00] VITALS: BP 106/80; PULSE 96; RESP 18; TEMP 97.8; O2SAT 94
[2023-09-15 21:10] VITALS: O2SAT 93
[2023-09-16 07:00] VITALS: RESP 16; O2SAT 96
[2023-09-16 08:00] VITALS: BP 119/65; PULSE 85; RESP 16; TEMP 97.3; O2SAT 96
[2023-09-16 19:00] VITALS: RESP 16; O2SAT 96
[2023-09-16 20:10] VITALS: BP 107/65; PULSE 80; RESP 22; TEMP 97.5; O2SAT 96
[2023-09-16 21:00] VITALS: O2SAT 93
[2023-09-17 07:00] VITALS: RESP 16; O2SAT 96
[2023-09-17 08:00] VITALS: BP 121/76; PULSE 82; RESP 22; TEMP 97.3; O2SAT 94
[2023-09-17 19:00] VITALS: RESP 16; O2SAT 96
[2023-09-17 20:00] VITALS: BP 116/74; PULSE 94; RESP 18; TEMP 98.1; O2SAT 96
[2023-09-17 21:00] VITALS: O2SAT 93
[2023-09-18 07:00] VITALS: RESP 16; O2SAT 95
[2023-09-18 07:30] VITALS: BP 116/66; PULSE 75; RESP 16; TEMP 97.5; O2SAT 95
[2023-09-18] MEDS: mineral oil/petrolatum, white cream 113gm jar TP SCH (18:20)
[2023-09-18 19:41] VITALS: BP 135/85; PULSE 92; RESP 17; TEMP 97.9; O2SAT 95
[2023-09-18 21:00] VITALS: O2SAT 95
[2023-09-19 07:00] VITALS: RESP 16; O2SAT 95
[2023-09-19 08:00] VITALS: BP 125/78; PULSE 85; RESP 16; TEMP 97.1; O2SAT 95
[2023-09-19] MEDS ORDERED: loperamide 2mg capsule PO PRN (13:25)
[2023-09-19] MEDS: acetaminophen 325mg tablet PO PRN (15:40)
[2023-09-19 19:59] VITALS: BP 127/78; PULSE 88; RESP 15; TEMP 97.6; O2SAT 96
[2023-09-19 21:00] VITALS: O2SAT 96
[2023-09-20 07:00] VITALS: RESP 18; O2SAT 95
[2023-09-20 08:00] VITALS: BP 127/66; PULSE 66; RESP 18; TEMP 97.8; O2SAT 95
[2023-09-20 19:00] VITALS: RESP 18; O2SAT 95
[2023-09-20 20:00] VITALS: BP 111/65; PULSE 81; RESP 17; TEMP 97.7; O2SAT 95
[2023-09-20 21:00] VITALS: O2SAT 96
[2023-09-21 07:00] VITALS: BP 132/82; PULSE 78; RESP 18; TEMP 97; O2SAT 95
[2023-09-21 19:30] VITALS: RESP 18; O2SAT 95
[2023-09-21 20:00] VITALS: BP 117/68; PULSE 100; RESP 18; TEMP 96.5; O2SAT 95
[2023-09-22 07:00] VITALS: BP 105/66; PULSE 79; RESP 12; TEMP 97.6; O2SAT 96
[2023-09-22] MEDS: LORazepam 1 MG tablet PO ONE (13:54)
[2023-09-22 19:00] VITALS: RESP 12; O2SAT 96
[2023-09-22 20:18] VITALS: BP 140/77; PULSE 88; RESP 16; TEMP 98.2; O2SAT 96
[2023-09-22] MEDS: gabapentin 100mg capsule PO SCH (21:14)
[2023-09-22] MEDS: divalproex sod 250mg ER (24-hour) tablet PO SCH (21:15)
[2023-09-23 07:00] VITALS: RESP 17; O2SAT 97
[2023-09-23] MEDS: divalproex 250mg tablet, delayed-release PO SCH (07:17)
[2023-09-23 08:00] VITALS: BP 135/80; PULSE 93; RESP 17; TEMP 98.2; O2SAT 97
[2023-09-23 19:00] VITALS: RESP 17; O2SAT 97
[2023-09-23 20:00] VITALS: BP 96/69; PULSE 70; RESP 18; TEMP 97; O2SAT 96
[2023-09-24 07:00] VITALS: BP 112/63; PULSE 80; RESP 12; TEMP 97.1; O2SAT 95
[2023-09-24] MEDS: divalproex sod 125mg sprinkle cap PO SCH (07:23)
[2023-09-24] MEDS: paliperidone 1.5mg ER tablet PO SCH (07:24)
[2023-09-24] MEDS: LIDOcaine 2% Viscous 15ml cup MM PRN (09:06)
[2023-09-24 20:00] VITALS: RESP 18
[2023-09-25 07:29] VITALS: RESP 12; O2SAT 95
[2023-09-25 08:00] VITALS: BP 142/82; PULSE 84; RESP 16; TEMP 97.6; O2SAT 97
[2023-09-25 19:08] VITALS: BP 169/73; PULSE 87; RESP 20; TEMP 97.4; O2SAT 96
[2023-09-25 21:24] VITALS: O2SAT 96
[2023-09-25 21:25] VITALS: O2SAT 96
[2023-09-26 07:00] VITALS: RESP 20; O2SAT 98
[2023-09-26 08:00] VITALS: BP 128/73; PULSE 98; RESP 18; TEMP 97.7; O2SAT 98
[2023-09-26] MEDS: LIDOcaine 5% patch TP SCH (08:08)
[2023-09-26] MEDS: mag hydrox/Alum hydrox/simeth 30ml oral suspension PO PRN (10:16)
[2023-09-26 19:42] VITALS: BP 125/86; PULSE 83; RESP 18; TEMP 97.4; O2SAT 98
[2023-09-26 21:00] VITALS: O2SAT 96
[2023-09-27 07:00] VITALS: RESP 20
[2023-09-27 08:52] VITALS: BP 141/86; PULSE 92; RESP 16; TEMP 96.2; O2SAT 96
[2023-09-27] MEDS: acetaminophen 325mg tablet PO PRN (15:31)
[2023-09-27] MEDS: tizanidine 4mg tablet PO PRN (18:53)
[2023-09-27 19:00] VITALS: BP 134/83; PULSE 86; RESP 20; TEMP 97.8; O2SAT 94
[2023-09-27] MEDS: LIDOcaine 5% patch TP ONE (20:46)
[2023-09-27] MEDS: ibuprofen tablet 400 MG TABLET PO PRN (20:47)
[2023-09-27 21:00] VITALS: O2SAT 94
[2023-09-28 07:00] VITALS: RESP 14; O2SAT 96
[2023-09-28 08:38] VITALS: BP 158/73; PULSE 80; RESP 14; TEMP 97.4; O2SAT 96
[2023-09-28 19:40] VITALS: BP 113/96; PULSE 79; RESP 14; TEMP 98.3; O2SAT 97
[2023-09-29 07:00] VITALS: BP 119/80; PULSE 73; RESP 16; TEMP 98.6; O2SAT 95
[2023-09-29 19:28] VITALS: BP 144/78; PULSE 72; RESP 18; TEMP 97.4; O2SAT 95
[2023-09-30 08:00] VITALS: BP 130/73; PULSE 77; RESP 15; TEMP 97.1; O2SAT 97
[2023-09-30 19:30] VITALS: RESP 15; O2SAT 94
[2023-09-30 19:43] VITALS: BP 138/78; PULSE 88; RESP 15; TEMP 98; O2SAT 97
[2023-10-01 07:00] VITALS: BP 126/78; PULSE 73; RESP 14; TEMP 97.1; O2SAT 96
[2023-10-01 17:17] LABS: BASOPHILS % (AUTO) 0.5 % (0-1); EOSINOPHILS # (AUTO) 0.2 X10'3 (0-0.9); EOSINOPHILS % (AUTO) 2.9 % (0-6); HEMATOCRIT 44.9 % (42.0-52.0); HEMOGLOBIN 15.5 g/dl (14.0-17.9); LYMPHOCYTES % (AUTO) 28.8 % (21-51); MEAN CORPUSCULAR HEMOGLOBIN 30.5 PG (27.0-31.0); MEAN CORPUSCULAR HGB CONC 34.5 g/dL (33.0-36.5); MEAN CORPUSCULAR VOLUME 88.4 FL (78-98); MEAN PLATELET VOLUME 8.2 FL (7.4-10.4); MONOCYTES # (AUTO) 0.5 X10'3 (0-0.9); MONOCYTES % (AUTO) 7.5 % (2-12); NEUTROPHILS # (AUTO) 4.3 X10'3 (1.8-7.7); NEUTROPHILS % (AUTO) 60.3 % (42-75); PLATELET COUNT 179 X10'3 (140-440); RED BLOOD COUNT 5.07 X10'6 (4.70-6.10); RED CELL DISTRIBUTION WIDTH 13.3 % (11.5-14.5); WHITE BLOOD COUNT 7.1 X10'3 (4.5-11.0)
[2023-10-01 17:30] LABS: ALANINE AMINOTRANSFERASE 57 U/L (12-78); ALBUMIN 3.7 G/DL (3.4-5.0); ALKALINE PHOSPHATASE 66 IU/L (46-116); ANION GAP 7 (8-16); ASPARTATE AMINO TRANSFERASE 24 U/L (10-37); BILIRUBIN,TOTAL 0.2 MG/DL (0.1-1.0); BLOOD UREA NITROGEN 20 MG/DL (7-18); BUN/CREATININE RATIO 22.7 (10.0-20.0); CALCIUM 8.5 MG/DL (8.5-10.1); CHLORIDE 104 MMOL/L (99-107); CREATININE 0.88 MG/DL (0.60-1.10); SODIUM 142 MMOL/L (135-145); TOTAL PROTEIN 7.4 G/DL (6.4-8.2); eCRCL 122 ML/MIN; eGFR > 90 ML/MIN
[2023-10-01 17:32] LABS: GLUCOSE 117 MG/DL (70-104); POTASSIUM 4.3 MMOL/L (3.5-5.1)
[2023-10-01 19:00] VITALS: BP 157/78; PULSE 105; RESP 20; TEMP 97.5; O2SAT 96
[2023-10-01 21:00] VITALS: O2SAT 94
[2023-10-02] MEDS: nicotine 14mg patch - 24hr TD SCH (07:19)
[2023-10-02 07:30] VITALS: BP 110/73; PULSE 76; RESP 20; TEMP 97; O2SAT 95
[2023-10-02 15:08] LABS: BASOPHILS % (AUTO) 0.3 % (0-1); EOSINOPHILS # (AUTO) 0.2 X10'3 (0-0.9); EOSINOPHILS % (AUTO) 2.5 % (0-6); HEMATOCRIT 45.8 % (42.0-52.0); HEMOGLOBIN 15.6 g/dl (14.0-17.9); LYMPHOCYTES # (AUTO) 1.8 X10'3 (1.1-4.8); LYMPHOCYTES % (AUTO) 25.2 % (21-51); MEAN CORPUSCULAR HEMOGLOBIN 30.2 PG (27.0-31.0); MEAN CORPUSCULAR HGB CONC 34.1 g/dL (33.0-36.5); MEAN CORPUSCULAR VOLUME 88.5 FL (78-98); MEAN PLATELET VOLUME 7.9 FL (7.4-10.4); MONOCYTES # (AUTO) 0.6 X10'3 (0-0.9); NEUTROPHILS # (AUTO) 4.7 X10'3 (1.8-7.7); PLATELET COUNT 188 X10'3 (140-440); RED BLOOD COUNT 5.17 X10'6 (4.70-6.10); RED CELL DISTRIBUTION WIDTH 13.5 % (11.5-14.5); WHITE BLOOD COUNT 7.3 X10'3 (4.5-11.0)
[2023-10-02] MEDS: magnesium hydroxide 30ml (MOM) UD suspension PO PRN (16:50)
[2023-10-02 19:00] VITALS: RESP 18; O2SAT 93
[2023-10-02] MEDS: tizanidine 4mg tablet PO PRN (19:23)
[2023-10-02] MEDS: lactulose 20gm/30ml cup PO SCH (19:23)
[2023-10-02 19:40] VITALS: BP 140/80; PULSE 103; RESP 18; TEMP 97.7; O2SAT 93
[2023-10-02] MEDS: polyethylene glycol 3350 17gm powd pack PO SCH (20:51)
[2023-10-03 07:00] VITALS: RESP 16; O2SAT 97
[2023-10-03 07:30] VITALS: BP 126/77; PULSE 100; RESP 16; TEMP 98.2; O2SAT 97
[2023-10-03 19:00] VITALS: RESP 17; O2SAT 96
[2023-10-03 19:17] VITALS: BP 160/85; PULSE 107; RESP 17; TEMP 98.3; O2SAT 96
[2023-10-04 07:30] VITALS: RESP 18; O2SAT 96
[2023-10-04] MEDS: nicotine 21mg patch - 24 hr TD SCH (08:00)
[2023-10-04 08:51] VITALS: BP 145/93; PULSE 84; RESP 18; TEMP 98.5; O2SAT 96
[2023-10-04] MEDS ORDERED: lactulose 20gm/30ml cup PO PRN (14:10)
[2023-10-04] MEDS ORDERED: polyethylene glycol 3350 17gm powd pack PO PRN (14:10)
[2023-10-04] MEDS: magnesium citrate 296ml oral solution PO ONE (15:13)
[2023-10-04 19:00] VITALS: BP 154/91; PULSE 110; RESP 20; TEMP 97.4; O2SAT 96
[2023-10-04] MEDS: ondansetron 4mg rapidly disintigrating tab PO ONE (21:53)
[2023-10-05 07:00] VITALS: RESP 16; O2SAT 95
[2023-10-05 07:40] VITALS: BP 121/92; PULSE 94; RESP 16; TEMP 97.1; O2SAT 95
[2023-10-05 19:00] VITALS: RESP 18; O2SAT 94
[2023-10-05 19:11] VITALS: BP 134/62; PULSE 105; RESP 18; TEMP 98.4; O2SAT 94
[2023-10-05 21:00] VITALS: O2SAT 96; O2SAT 97
[2023-10-06 07:00] VITALS: RESP 16; O2SAT 97
[2023-10-06 08:00] VITALS: BP 103/60; PULSE 56; RESP 16; TEMP 97.1; O2SAT 97
[2023-10-06 19:00] VITALS: RESP 18; O2SAT 95
[2023-10-06 20:02] VITALS: BP 133/80; PULSE 104; RESP 18; TEMP 98.5; O2SAT 95
[2023-10-06 21:00] VITALS: O2SAT 94; O2SAT 95
[2023-10-07 07:00] VITALS: BP 112/76; PULSE 66; RESP 14; TEMP 98.7; O2SAT 96
[2023-10-07] MEDS: LIDOcaine 5% patch TP SCH (07:22)
[2023-10-07 19:00] VITALS: RESP 20; O2SAT 96
[2023-10-07 19:31] VITALS: BP 141/69; PULSE 80; RESP 20; TEMP 97.6; O2SAT 95
[2023-10-07 21:00] VITALS: O2SAT 96
[2023-10-08 07:30] VITALS: BP 134/81; PULSE 78; RESP 12; TEMP 97.6; O2SAT 95
[2023-10-08 19:20] VITALS: RESP 17; O2SAT 94
[2023-10-08 19:23] VITALS: BP 128/85; PULSE 99; RESP 17; TEMP 98.2; O2SAT 94
[2023-10-09 07:30] VITALS: BP 117/75; PULSE 84; RESP 12; TEMP 97.1; O2SAT 95
[2023-10-09 19:00] VITALS: RESP 20; O2SAT 100
[2023-10-09 20:00] VITALS: BP 120/86; PULSE 103; RESP 20; TEMP 97; O2SAT 100
[2023-10-09 21:00] VITALS: O2SAT 100
[2023-10-10 07:08] VITALS: BP 122/56; PULSE 96; RESP 12; TEMP 97.7; O2SAT 100
[2023-10-10 07:30] VITALS: RESP 20
[2023-10-10 19:36] VITALS: BP 141/99; PULSE 96; RESP 16; TEMP 97.6; O2SAT 96
[2023-10-11 07:00] VITALS: RESP 16; O2SAT 96
[2023-10-11 07:21] VITALS: BP 130/78; PULSE 74; RESP 16; TEMP 98.7; O2SAT 96
[2023-10-11 19:30] VITALS: BP 151/85; PULSE 83; RESP 17; TEMP 97.6; O2SAT 98
[2023-10-12 07:00] VITALS: RESP 16; O2SAT 95
[2023-10-12 08:10] VITALS: BP 131/76; PULSE 88; RESP 16; TEMP 97.1; O2SAT 95
[2023-10-12 19:28] VITALS: RESP 18; O2SAT 95
[2023-10-12 20:14] VITALS: BP 111/56; PULSE 60; RESP 18; TEMP 97.8; O2SAT 95
[2023-10-13 07:00] VITALS: BP 161/76; PULSE 80; RESP 18; TEMP 98.2; O2SAT 95
[2023-10-13] MEDS: sertraline 25mg tablet PO SCH (07:07)
[2023-10-13 20:26] VITALS: BP 94/46; PULSE 86; RESP 16; TEMP 98.2; O2SAT 93
[2023-10-13 21:10] VITALS: BP 126/82
[2023-10-14 07:00] VITALS: BP 109/59; PULSE 68; RESP 18; TEMP 97.2; O2SAT 96
[2023-10-14 19:00] VITALS: RESP 18; O2SAT 95
[2023-10-14 19:48] VITALS: BP 153/85; PULSE 81; RESP 18; TEMP 98; O2SAT 95
[2023-10-15 07:30] VITALS: RESP 16; O2SAT 95
[2023-10-15 08:30] VITALS: BP 131/77; PULSE 83; RESP 16; TEMP 97.3; O2SAT 95
[2023-10-15 19:00] VITALS: RESP 16; O2SAT 95
[2023-10-15 20:19] VITALS: BP 127/77; PULSE 79; RESP 16; TEMP 97.4; O2SAT 95
[2023-10-16 07:11] VITALS: BP 137/79; PULSE 85; RESP 18; TEMP 97; O2SAT 95
[2023-10-16 07:55] VITALS: RESP 16
[2023-10-16 19:00] VITALS: BP 112/68; PULSE 101; RESP 16; TEMP 97; O2SAT 98
[2023-10-17 07:00] VITALS: RESP 12; O2SAT 95
[2023-10-17 08:00] VITALS: BP 129/73; PULSE 70; RESP 12; TEMP 97.6; O2SAT 95
[2023-10-17 20:00] VITALS: BP 146/90; PULSE 100; RESP 22; TEMP 97.7; O2SAT 95
[2023-10-17 21:00] VITALS: O2SAT 95
[2023-10-18 07:29] VITALS: BP 146/72; PULSE 72; RESP 12; TEMP 97.3; O2SAT 96
[2023-10-18 07:30] VITALS: RESP 12; O2SAT 96
[2023-10-18] MEDS ORDERED: LIDOcaine 5% patch TP PRN (10:20)
[2023-10-18 19:47] VITALS: BP 119/65; PULSE 86; RESP 14; TEMP 97.6; O2SAT 93
[2023-10-18 21:00] VITALS: O2SAT 93; O2SAT 97
[2023-10-19 07:01] VITALS: BP 106/75; PULSE 70; RESP 14; TEMP 97.4; O2SAT 95
[2023-10-19 09:00] VITALS: RESP 14; O2SAT 95
[2023-10-19] MEDS ORDERED: bacitracin 15gm ointment TP PRN (17:25)
[2023-10-19] MEDS: OLANZapine 5mg rapidly disint. tablet PO STA (18:39)
[2023-10-19] MEDS: LORazepam 1 MG tablet PO STA (18:40)
[2023-10-19] MEDS: divalproex sod 125mg sprinkle cap PO SCH (18:41)
[2023-10-19 19:00] VITALS: RESP 16; O2SAT 99
[2023-10-19 19:38] VITALS: BP 120/84; PULSE 83; RESP 16; TEMP 97.1; O2SAT 99
[2023-10-19 21:00] VITALS: O2SAT 99
[2023-10-19] MEDS ORDERED: bacitracin 15gm ointment TP SCH (21:00)
[2023-10-20 07:00] VITALS: RESP 17; O2SAT 96
[2023-10-20 08:26] VITALS: BP 132/88; PULSE 100; RESP 17; TEMP 97.1; O2SAT 96
[2023-10-20] MEDS: LORazepam 1 MG tablet PO ONE (16:10)
[2023-10-20 19:00] VITALS: RESP 16; O2SAT 94
[2023-10-20 19:19] VITALS: BP 123/77; PULSE 106; RESP 16; TEMP 97.8; O2SAT 94
[2023-10-20 21:00] VITALS: O2SAT 94
[2023-10-21 07:00] VITALS: BP 133/95; PULSE 103; RESP 16; TEMP 97.2; O2SAT 95
[2023-10-21 19:00] VITALS: BP 134/73; PULSE 97; RESP 18; TEMP 98.1; O2SAT 94
[2023-10-21 19:44] VITALS: RESP 18; O2SAT 94
[2023-10-21 21:00] VITALS: O2SAT 94
[2023-10-21] MEDS: LORazepam 1 MG tablet PO SCH (21:45)
[2023-10-22 07:30] VITALS: BP 114/61; PULSE 102; RESP 12; TEMP 97; O2SAT 96
[2023-10-22 08:00] VITALS: RESP 12; O2SAT 96
[2023-10-22 19:00] VITALS: RESP 16
[2023-10-22 20:50] VITALS: O2SAT 96
[2023-10-23] MEDS: acetaminophen 325mg tablet PO PRN (03:58)
[2023-10-23 07:14] VITALS: RESP 16
[2023-10-23 07:30] VITALS: BP 127/77; PULSE 72; RESP 12; TEMP 97.7; O2SAT 95
[2023-10-23 19:00] VITALS: RESP 16; O2SAT 95
[2023-10-23 20:00] VITALS: BP 118/88; PULSE 91; RESP 16; TEMP 98.1; O2SAT 95
[2023-10-24 07:32] VITALS: RESP 16
[2023-10-24 08:00] VITALS: BP 121/85; PULSE 68; RESP 16; TEMP 97.7; O2SAT 96
[2023-10-24 19:00] VITALS: RESP 18; O2SAT 96
[2023-10-24 20:00] VITALS: BP 140/87; PULSE 86; RESP 18; TEMP 97.5; O2SAT 18
[2023-10-24] MEDS: LORazepam 1 MG tablet PO SCH (20:38)
[2023-10-25 07:30] VITALS: BP 127/86; PULSE 92; RESP 16; TEMP 97.5; O2SAT 96
[2023-10-25 19:00] VITALS: BP 125/69; PULSE 78; RESP 15; TEMP 98.2; O2SAT 95
[2023-10-26 08:00] VITALS: BP 135/75; PULSE 85; RESP 16; TEMP 98; O2SAT 94
[2023-10-26 19:30] VITALS: BP 122/76; PULSE 96; RESP 18; TEMP 97.3; O2SAT 94
[2023-10-27 07:30] VITALS: BP 130/56; PULSE 74; RESP 13; TEMP 97.9; O2SAT 95
[2023-10-27 19:37] VITALS: BP 140/65; PULSE 79; RESP 16; TEMP 98.2; O2SAT 95
[2023-10-28 07:00] VITALS: RESP 16; O2SAT 96
[2023-10-28 08:00] VITALS: BP 91/58; PULSE 107; RESP 16; TEMP 97.1; O2SAT 96
[2023-10-28 19:00] VITALS: RESP 16; O2SAT 97
[2023-10-28 20:00] VITALS: BP 114/78; PULSE 105; RESP 16; TEMP 96.7; O2SAT 97
[2023-10-28] MEDS: LORazepam 1 MG tablet PO PRN (21:13)
[2023-10-29 07:30] VITALS: BP 126/70; PULSE 83; RESP 16; TEMP 97.5; O2SAT 94
[2023-10-29 09:14] VITALS: BP 126/70; PULSE 83; RESP 16; TEMP 97.5; O2SAT 94
[2023-10-29 09:20] VITALS: RESP 16; O2SAT 94
[2023-10-29 19:00] VITALS: RESP 18; O2SAT 95
[2023-10-29 20:00] VITALS: BP 109/60; PULSE 76; RESP 18; TEMP 97.8; O2SAT 95
[2023-10-30 07:00] VITALS: RESP 18; O2SAT 95
[2023-10-30 08:00] VITALS: BP 104/74; PULSE 101; RESP 18; TEMP 96.9; O2SAT 95
[2023-10-30 19:00] VITALS: RESP 18; O2SAT 95
[2023-10-30 20:00] VITALS: BP 121/80; PULSE 99; RESP 18; TEMP 97.4; O2SAT 97
[2023-10-31 07:30] VITALS: RESP 19; O2SAT 95
[2023-10-31 08:00] VITALS: BP 160/99; PULSE 89; RESP 19; TEMP 97.6; O2SAT 95
[2023-10-31 19:00] VITALS: BP 106/58; PULSE 70; RESP 16; TEMP 97.2; O2SAT 96
[2023-11-01 07:00] VITALS: RESP 16; O2SAT 98
[2023-11-01 08:00] VITALS: BP 145/92; PULSE 68; RESP 16; TEMP 97.5; O2SAT 98
[2023-11-01 19:00] VITALS: BP 135/78; PULSE 73; RESP 16; TEMP 97.8; O2SAT 97
[2023-11-02] MEDS: haloperidol lactate 5mg/ml inj ONE (07:26)
[2023-11-02] MEDS: diphenhydrAMINE 50 mg/ml inj ONE (07:26)
[2023-11-02] MEDS: LORazepam 2 mg/ml vial ONE (07:26)
[2023-11-02 08:00] VITALS: BP 118/55; PULSE 82; RESP 16; TEMP 98.6; O2SAT 97
[2023-11-02 19:00] VITALS: RESP 16; O2SAT 96
[2023-11-02 20:00] VITALS: BP 124/72; PULSE 76; RESP 16; TEMP 97.3; O2SAT 96
[2023-11-02] MEDS: LORazepam 2 mg/ml vial IM PRN (20:24)
[2023-11-02] MEDS: haloperidol lactate 5mg/ml inj IM PRN (20:25)
[2023-11-02] MEDS: diphenhydrAMINE 50 mg/ml inj IM PRN (20:25)
[2023-11-03 07:30] VITALS: RESP 16; O2SAT 94
[2023-11-03 08:00] VITALS: RESP 14; RESP 20
[2023-11-03 19:30] VITALS: RESP 16; O2SAT 94
[2023-11-03 20:00] VITALS: BP 108/74; PULSE 100; RESP 16; TEMP 97.8; O2SAT 96
[2023-11-03 21:18] LABS: BASOPHILS % (AUTO) 0.4 % (0-1); EOSINOPHILS # (AUTO) 0.2 X10'3 (0-0.9); EOSINOPHILS % (AUTO) 3.8 % (0-6); HEMATOCRIT 44.2 % (42.0-52.0); LYMPHOCYTES # (AUTO) 1.9 X10'3 (1.1-4.8); LYMPHOCYTES % (AUTO) 31.1 % (21-51); MEAN CORPUSCULAR HEMOGLOBIN 30.1 PG (27.0-31.0); MEAN CORPUSCULAR HGB CONC 33.9 g/dL (33.0-36.5); MEAN CORPUSCULAR VOLUME 88.8 FL (78-98); MEAN PLATELET VOLUME 8.2 FL (7.4-10.4); MONOCYTES # (AUTO) 0.6 X10'3 (0-0.9); MONOCYTES % (AUTO) 9.3 % (2-12); NEUTROPHILS # (AUTO) 3.3 X10'3 (1.8-7.7); NEUTROPHILS % (AUTO) 55.4 % (42-75); PLATELET COUNT 174 X10'3 (140-440); RED BLOOD COUNT 4.98 X10'6 (4.70-6.10); RED CELL DISTRIBUTION WIDTH 13.8 % (11.5-14.5)
[2023-11-03 21:28] LABS: ALANINE AMINOTRANSFERASE 81 U/L (12-78); ALBUMIN 3.2 G/DL (3.4-5.0); ALBUMIN/GLOBULIN RATIO 0.9 (1.1-1.5); ALKALINE PHOSPHATASE 62 IU/L (46-116); ANION GAP 8 (8-16); ASPARTATE AMINO TRANSFERASE 51 U/L (10-37); BILIRUBIN,TOTAL 0.2 MG/DL (0.1-1.0); BLOOD UREA NITROGEN 19 MG/DL (7-18); BUN/CREATININE RATIO 18.3 (10.0-20.0); CALCIUM 8.4 MG/DL (8.5-10.1); CHLORIDE 106 MMOL/L (99-107); CREATININE 1.04 MG/DL (0.60-1.10); GLUCOSE 117 MG/DL (70-104); POTASSIUM 4.1 MMOL/L (3.5-5.1); SODIUM 141 MMOL/L (135-145); TOTAL CARBON DIOXIDE 27.1 MMOL/L (24-32); TOTAL PROTEIN 6.7 G/DL (6.4-8.2); eCRCL 103 ML/MIN; eGFR 77 ML/MIN
[2023-11-04 06:45] VITALS: RESP 16; O2SAT 98
[2023-11-04 07:10] VITALS: BP 144/84; PULSE 96; RESP 16; TEMP 97.6; O2SAT 98
[2023-11-04 19:22] VITALS: BP 117/68; PULSE 75; RESP 16; TEMP 98.1; O2SAT 97
[2023-11-05 07:00] VITALS: RESP 16; O2SAT 94
[2023-11-05 08:00] VITALS: BP 128/66; PULSE 74; RESP 16; TEMP 97.3; O2SAT 94
[2023-11-05 19:00] VITALS: RESP 20; O2SAT 94
[2023-11-05 19:10] VITALS: BP 115/63; PULSE 68; RESP 20; TEMP 97.1; O2SAT 94
[2023-11-06 07:00] VITALS: RESP 16; O2SAT 95
[2023-11-06 07:30] VITALS: BP 139/64; PULSE 72; RESP 16; TEMP 97.8; O2SAT 95
[2023-11-06] MEDS: acetaminophen 325mg tablet PO PRN (08:32)
[2023-11-06] MEDS: divalproex sod 125mg sprinkle cap PO SCH (12:15)
[2023-11-06] MEDS: ibuprofen tablet 400 MG TABLET PO PRN (14:00)
[2023-11-06 18:58] VITALS: RESP 18; O2SAT 94
[2023-11-06 19:05] VITALS: BP 106/55; PULSE 68; RESP 18; TEMP 98.2; O2SAT 94
[2023-11-07] MEDS: ketorolac trometh. 30mg/ml inj. IM ONE (04:12)
[2023-11-07 07:00] VITALS: RESP 16; O2SAT 94
[2023-11-07 08:00] VITALS: BP 141/77; PULSE 62; RESP 16; TEMP 97.5; O2SAT 94
[2023-11-07 19:00] VITALS: RESP 18; O2SAT 94
[2023-11-07 20:00] VITALS: BP 97/46; PULSE 74; RESP 18; TEMP 97.4; O2SAT 94
[2023-11-08 07:30] VITALS: BP 129/64; PULSE 59; RESP 16; TEMP 97.8; O2SAT 91
[2023-11-08 19:00] VITALS: RESP 18; O2SAT 97
[2023-11-08 20:00] VITALS: BP 129/60; PULSE 88; RESP 18; TEMP 97.8; O2SAT 97
[2023-11-09 08:00] VITALS: BP 120/86; PULSE 75; RESP 14; TEMP 98.4; O2SAT 94
[2023-11-09] MEDS: chlorhexidine gluconate 15ml Cup****oral rinse MM SCH (08:20)
[2023-11-09 19:00] VITALS: RESP 16; O2SAT 95
[2023-11-09 20:42] VITALS: BP 119/69; PULSE 74; RESP 16; TEMP 97.6; O2SAT 95
[2023-11-10 07:30] VITALS: BP 108/48; PULSE 55; RESP 14; TEMP 97.9; O2SAT 94
[2023-11-10] MEDS: clotrimazole topical cream 15gm tube TP SCH (19:18)
[2023-11-10 19:51] VITALS: BP_SYST 110; BP_SYST 116; BP_DIAS 58; BP_DIAS 68; PULSE 65; PULSE 82; RESP 16; RESP 18; TEMP 97.3; TEMP 98.2; O2SAT 94
[2023-11-11 07:00] VITALS: RESP 16; O2SAT 96
[2023-11-11 08:00] VITALS: BP 114/66; PULSE 78; RESP 16; TEMP 97.2; O2SAT 96
[2023-11-11 19:19] VITALS: BP 111/71; PULSE 68; RESP 16; TEMP 97.9; O2SAT 68
[2023-11-12 07:30] VITALS: BP 123/83; PULSE 86; RESP 16; RESP 20; TEMP 97.3; O2SAT 95
[2023-11-12 19:00] VITALS: RESP 20; O2SAT 95
[2023-11-12 20:00] VITALS: BP 121/75; PULSE 95; RESP 18; TEMP 97.6; O2SAT 99
[2023-11-13 07:30] VITALS: RESP 16; O2SAT 95
[2023-11-13 08:00] VITALS: BP 102/60; PULSE 75; RESP 14; TEMP 97.9; O2SAT 95
[2023-11-13 19:00] VITALS: RESP 20; O2SAT 98
[2023-11-13 19:16] VITALS: BP 132/70; PULSE 77; RESP 20; TEMP 98; O2SAT 98
[2023-11-14 07:00] VITALS: RESP 16; O2SAT 97
[2023-11-14 08:00] VITALS: BP 117/70; PULSE 83; RESP 16; TEMP 97.5; O2SAT 97
[2023-11-14 19:00] VITALS: RESP 18; O2SAT 98
[2023-11-14 19:58] VITALS: BP 119/86; PULSE 93; RESP 18; TEMP 98.4; O2SAT 95
[2023-11-15 07:10] VITALS: BP 124/69; PULSE 81; RESP 12; TEMP 97.7; O2SAT 97
[2023-11-15 19:00] VITALS: RESP 20; O2SAT 97
[2023-11-15 19:26] VITALS: BP 107/51; PULSE 65; RESP 20; TEMP 98.2; O2SAT 97
[2023-11-16 06:35] LABS: ALANINE AMINOTRANSFERASE 62 U/L (12-78); ALBUMIN 3.2 G/DL (3.4-5.0); ALBUMIN/GLOBULIN RATIO 0.9 (1.1-1.5); ALKALINE PHOSPHATASE 48 IU/L (46-116); ANION GAP 3 (8-16); ASPARTATE AMINO TRANSFERASE 24 U/L (10-37); BILIRUBIN,TOTAL 0.3 MG/DL (0.1-1.0); BLOOD UREA NITROGEN 12 MG/DL (7-18); BUN/CREATININE RATIO 16.4 (10.0-20.0); CALCIUM 8.7 MG/DL (8.5-10.1); CHLORIDE 105 MMOL/L (99-107); CREATININE 0.73 MG/DL (0.60-1.10); GLUCOSE 112 MG/DL (70-104); POTASSIUM 4.6 MMOL/L (3.5-5.1); SODIUM 140 MMOL/L (135-145); TOTAL CARBON DIOXIDE 32.2 MMOL/L (24-32); TOTAL PROTEIN 6.8 G/DL (6.4-8.2); eCRCL 147 ML/MIN; eGFR > 90 ML/MIN
[2023-11-16 06:36] LABS: VALPROATE 61 UG/ML (50-100)
[2023-11-16 07:21] VITALS: BP 117/69; PULSE 90; RESP 18; TEMP 98.1; O2SAT 95
[2023-11-16 19:38] VITALS: BP 106/79; PULSE 89; RESP 16; TEMP 97.6; O2SAT 95
[2023-11-17 07:00] VITALS: RESP 18; O2SAT 99
[2023-11-17 07:30] VITALS: BP 125/87; PULSE 69; RESP 18; TEMP 97.5; O2SAT 99
[2023-11-17 19:00] VITALS: BP 117/69; PULSE 103; RESP 16; TEMP 97.8; O2SAT 94; O2SAT 97
[2023-11-18 07:00] VITALS: RESP 18; O2SAT 94
[2023-11-18 08:00] VITALS: BP 127/69; PULSE 81; RESP 18; TEMP 97.6; O2SAT 94
[2023-11-18] MEDS: tuberculin, purif. prot. deriv. 5 units/0.1ml ID ONE ×2 (13:30→16:50)
[2023-11-18 19:00] VITALS: BP 106/69; PULSE 98; RESP 14; TEMP 97.9; O2SAT 93
[2023-11-19 07:30] VITALS: BP 127/74; PULSE 77; RESP 16; TEMP 97.1; O2SAT 93
[2023-11-19 19:30] VITALS: BP 128/83; PULSE 79; RESP 14; TEMP 98; O2SAT 95
[2023-11-20 07:30] VITALS: BP 112/76; PULSE 74; RESP 16; TEMP 98; O2SAT 94
[2023-11-20 19:00] VITALS: RESP 16; O2SAT 93
[2023-11-20 20:00] VITALS: BP 120/69; PULSE 60; RESP 16; TEMP 97.3; O2SAT 93
[2023-11-21 07:30] VITALS: BP 114/62; PULSE 66; RESP 16; TEMP 97.5; O2SAT 95
[2023-11-21 19:00] VITALS: RESP 18; O2SAT 98
[2023-11-21 20:00] VITALS: BP 119/70; PULSE 90; RESP 18; TEMP 96.5; O2SAT 98
[2023-11-21] MEDS: divalproex sod 125mg sprinkle cap PO SCH (20:38)
[2023-11-22 08:07] VITALS: BP 119/75; PULSE 75; RESP 12; TEMP 97.8; O2SAT 95
[2023-11-22] MEDS: divalproex sod 125mg sprinkle cap PO SCH (08:59)
[2023-11-22 19:00] VITALS: RESP 14; O2SAT 96
[2023-11-22 19:21] VITALS: BP 125/83; PULSE 97; RESP 20; TEMP 97.8; O2SAT 98
[2023-11-23 07:00] VITALS: PULSE 82; RESP 18; TEMP 98.5; O2SAT 96
[2023-11-23] MEDS: oxymetazoline 15 ML nasal spray NS SCH (11:40)
[2023-11-23 19:00] VITALS: PULSE 83; RESP 16; TEMP 98; O2SAT 94; O2SAT 96
[2023-11-24 07:00] VITALS: BP 114/63; PULSE 84; RESP 16; TEMP 97.9; O2SAT 93
[2023-11-24 19:25] VITALS: RESP 18; O2SAT 97
[2023-11-24 19:28] VITALS: BP 137/79; PULSE 67; RESP 18; TEMP 98.2; O2SAT 97
[2023-11-25] MEDS: fluticasone nasal spray 16GM bottle NS PRN (07:27)
[2023-11-25 07:30] VITALS: BP 106/84; PULSE 83; RESP 18; TEMP 97.5; O2SAT 96
[2023-11-25 19:25] VITALS: BP 99/51; PULSE 91; RESP 14; TEMP 98.2; O2SAT 92
[2023-11-26 07:30] VITALS: BP 145/69; PULSE 60; RESP 16; RESP 20; TEMP 98.5; O2SAT 93
[2023-11-26 19:00] VITALS: RESP 18; O2SAT 95
[2023-11-26] MEDS: HALLS - SOOTHE MENTHOL 1.8 MG cough drop LOZENGE MM PRN (19:18)
[2023-11-26 20:00] VITALS: BP 135/86; PULSE 98; RESP 18; TEMP 98.1; O2SAT 95
[2023-11-27 07:30] VITALS: BP 116/70; PULSE 65; RESP 12; RESP 20; TEMP 98.1; O2SAT 95
[2023-11-27] MEDS ORDERED: GABA-530 PO (16:16)
[2023-11-27] MEDS ORDERED: TRAZ-251 PO (16:16)
[2023-11-27] MEDS ORDERED: HYDR-3686 PO (16:16)
[2023-11-27] MEDS ORDERED: TIZA-205 PO (16:16)
[2023-11-27] MEDS ORDERED: PALI1.5T2 PO (16:16)
[2023-11-27] MEDS ORDERED: ATI1T PO (16:16)
[2023-11-27] MEDS ORDERED: PANT40TA54 PO (16:16)
[2023-11-27] MEDS ORDERED: NICO-687 TD (16:16)
[2023-11-27] MEDS ORDERED: DIVA125C2 PO ×2 (16:17)
[2023-11-27 19:00] VITALS: RESP 14; O2SAT 96
[2023-11-27 19:29] VITALS: BP 131/68; PULSE 86; RESP 16; TEMP 98.2; O2SAT 94
[2023-11-28 08:00] VITALS: BP 116/74; PULSE 81; RESP 16; TEMP 98.7; O2SAT 95
[2023-11-28 19:00] VITALS: RESP 12; O2SAT 94
[2023-11-28 19:33] VITALS: BP 122/78; PULSE 92; RESP 12; TEMP 97.6; O2SAT 94
[2023-11-29 08:55] VITALS: BP 108/54; PULSE 57; RESP 14; TEMP 97.7; O2SAT 93
[2023-11-29 19:16] VITALS: BP 135/79; PULSE 74; RESP 18; TEMP 98.6; O2SAT 95
[2023-11-30 07:00] VITALS: BP 130/87; PULSE 79; RESP 16; TEMP 98.3; O2SAT 96
[2023-11-30 20:00] VITALS: RESP 18
[2023-12-01 07:00] VITALS: BP 136/88; PULSE 87; RESP 16; TEMP 98.2; O2SAT 94
== END 2023-12-01 10:01 | DRG 885 ==
LOC: ER 14:38 → ED HOLD 05-10 10:30 → ADULT MH 05-10 11:25
PROVIDERS: ADMIT Psychiatry & Neurology Psychiatry; ATTEND Psychiatry & Neurology Psychiatry
PROC: GZHZZZZ Group Psychotherapy (ICD-10-PCS; principal; 2023-05-11)
PROC: GZ51ZZZ Individual Psychotherapy, Behavioral (ICD-10-PCS; 2023-05-11)
PROC: GZ56ZZZ Individual Psychotherapy, Supportive (ICD-10-PCS; 2023-05-11)
DX: F25.0 Schizoaffective disorder, bipolar type (principal); Z68.41 Body mass index [BMI] 40.0-44.9, adult; F17.210 Nicotine dependence, cigarettes, uncomplicated; E86.0 Dehydration; F60.3 Borderline personality disorder; F90.9 Attention-deficit hyperactivity disorder, unspecified type; Z20.822 Contact with and (suspected) exposure to COVID-19; K02.9 Dental caries, unspecified; K21.9 Gastro-esophageal reflux disease without esophagitis; M54.50 Low back pain, unspecified; K59.09 Other constipation; Z79.899 Other long term (current) drug therapy; Z81.8 Family history of other mental and behavioral disorders; E66.01 Morbid (severe) obesity due to excess calories
CPT/HCPCS: 36415; 71046; 71250; 74018; 74176; 80053; 80061; 80164; 80305; 80320; 80329; 81003; 82948; 83036; 83690; 84145; 84443; 85025; 85651; 87081; 87811; 93005; 94640; 94660; 94760; 99285; A4615; A6250; J1200; J1630; J1885; J2060; J2426; J3490; Q0177